=== PATIENT | male | born 1960 | race Caucasian/White ===

== ENCOUNTER 2023-01-06 15:01 | Outpatient (OUT) | payer BC, SELFPAY ==
--- NOTE | 2023-01-06 15:08 | XR_ITS ---
The [address] [address] Patient Name: PETER GONZALES MRN: [id number] date: 1960 Sex: M Assigned Patient Location: [facility] Current Patient Location: Accession/Order Number: [id number] Exam Date: 01/06/2023 15:15 Report Date: 01/07/2023 05:36 At the request of: JONATHAN MCKEON Procedure: XR cervical spine 5V EXAMINATION: XR thoracic spine 3V, XR cervical spine 5V, XR lumbar spine min 4V HISTORY: thoracic back pain , cervical pain, lumbar pain COMPARISON: No relevant comparison available. FINDINGS: BONES: Loss of normal cervical lordosis. No acute fracture. 3 mm retrolisthesis of C5 in relation to C4 and C6. L5 pars interarticularis fractures suspected. Moderate diffuse degenerative spondylosis and facet osteoarthropathy most significant at T12-L2 and C5-C6 DISC SPACES: Moderate multilevel disc space narrowing with endplate sclerosis PARASPINOUS: Negative. No paraspinous abnormality is seen. OTHER: Negative. IMPRESSION: Moderate diffuse degenerative changes most significant C5-C6 and T12-L2 Electronically authenticated by: PETER HERZOG Date: 01/07/2023 05:36
--- NOTE | 2023-01-06 15:08 | XR_ITS ---
The [address] [address] Patient Name: PETER GONZALES MRN: [id number] date: 1960 Sex: M Assigned Patient Location: [facility] Current Patient Location: Accession/Order Number: [id number] Exam Date: 01/06/2023 15:15 Report Date: 01/07/2023 05:36 At the request of: JONATHAN MCKEON Procedure: XR thoracic spine 3V EXAMINATION: XR thoracic spine 3V, XR cervical spine 5V, XR lumbar spine min 4V HISTORY: thoracic back pain , cervical pain, lumbar pain COMPARISON: No relevant comparison available. FINDINGS: BONES: Loss of normal cervical lordosis. No acute fracture. 3 mm retrolisthesis of C5 in relation to C4 and C6. L5 pars interarticularis fractures suspected. Moderate diffuse degenerative spondylosis and facet osteoarthropathy most significant at T12-L2 and C5-C6 DISC SPACES: Moderate multilevel disc space narrowing with endplate sclerosis PARASPINOUS: Negative. No paraspinous abnormality is seen. OTHER: Negative. IMPRESSION: Moderate diffuse degenerative changes most significant C5-C6 and T12-L2 Electronically authenticated by: PETER HERZOG Date: 01/07/2023 05:36
--- NOTE | 2023-01-06 15:08 | XR_ITS ---
The [address] [address] Patient Name: PETER GONZALES MRN: [id number] date: 1960 Sex: M Assigned Patient Location: [facility] Current Patient Location: Accession/Order Number: [id number] Exam Date: 01/06/2023 15:15 Report Date: 01/07/2023 05:36 At the request of: JONATHAN MCKEON Procedure: XR lumbar spine min 4V EXAMINATION: XR thoracic spine 3V, XR cervical spine 5V, XR lumbar spine min 4V HISTORY: thoracic back pain , cervical pain, lumbar pain COMPARISON: No relevant comparison available. FINDINGS: BONES: Loss of normal cervical lordosis. No acute fracture. 3 mm retrolisthesis of C5 in relation to C4 and C6. L5 pars interarticularis fractures suspected. Moderate diffuse degenerative spondylosis and facet osteoarthropathy most significant at T12-L2 and C5-C6 DISC SPACES: Moderate multilevel disc space narrowing with endplate sclerosis PARASPINOUS: Negative. No paraspinous abnormality is seen. OTHER: Negative. IMPRESSION: Moderate diffuse degenerative changes most significant C5-C6 and T12-L2 Electronically authenticated by: PETER HERZOG Date: 01/07/2023 05:36
== END 2023-01-06 15:02 | disposition home or self-care (01) ==
LOC: RAD 15:04
PROVIDERS: PCP Family Medicine; Visit Provider Family Medicine
DX: M54.2 Cervicalgia (principal); M54.6 Pain in thoracic spine; M54.50 Low back pain, unspecified; M47.812 Spondylosis without myelopathy or radiculopathy, cervical region; M47.815 Spondylosis without myelopathy or radiculopathy, thoracolumbar region
CPT/HCPCS: 72050; 72072; 72110

== ENCOUNTER 2023-01-28 04:15 | Emergency (ER) | payer BC, SELFPAY ==
[2023-01-28 04:24] VITALS: PULSE 60; RESP 16; TEMP 36.6; O2SAT 99; BMI 23.5
--- NOTE | 2023-01-28 04:56 | ED.BACK1 ---
HPI - Back Pain/Injury General Chief Complaint: Back Pain/Injury Stated Complaint: BACK PAIN Time Seen by Provider: 01/28/23 04:40 Source: patient Mode of arrival: walk-in History of Present Illness HPI Narrative: This 62-year-old male presents for evaluation of left lateral low back/buttock pain. He points to the sacroiliac region on the left as area of greatest pain. He states the pain has been present for a week. He denies any injury. He denies any radiation into his legs. He states that he was going to close a window in his car yesterday and his leg went out and he went down to his knee. He was artery having pain at that time. He denies any chest pain or shortness of breath. He does have a history of hypertension and he recently saw Dr. Angeles who scheduled him to have an ultrasound of his kidneys. He is not bleeding to the area of his kidneys as area of greatest pain at this time. He denies any bowel or bladder dysfunction. He has no constipation. He has not had any incontinence. He has not had any hematuria or dysuria. He denies any nausea or vomiting. He states the pain started on the right week or so ago and is now on the left side. There is no chest pain or shortness of breath. He denies any dizziness or diaphoresis. He has no focal weakness numbness or tingling. He has never been told that he has sciatica. Related Data Home Medications Medication Instructions Recorded Confirmed diclofenac sodium 75 mg 75 mg PO Q12H 01/28/23 01/28/23 tablet,delayed release metoprolol succinate 50 mg 50 mg PO Q12H 01/28/23 01/28/23 tablet,extended release 24 hr olmesartan 40 mg tablet 40 mg PO DAILY 01/28/23 01/28/23 tizanidine 4 mg tablet 4 mg PO DAILY 01/28/23 01/28/23 Allergies Allergy/AdvReac Type Severity Reaction Status Date / Time No Known Drug Allergies Allergy Verified 01/28/23 04:32 Review of Systems ROS Status of ROS 10 or more systems reviewed and unremarkable except as noted in history and below PFSH PFSH Social History Smoking status: Current every day smoker Exam Narrative Exam Narrative: Nurses note and vital signs reviewed and patient is not hypoxic. General: Adult male, he is sitting on a chair hunched over holding the left low back area with his hand, no respiratory distress, appears uncomfortable moving into the supine position on the bed Skin: Warm, dry, no pallor noted. There is no rash noted. Head: Normocephalic, atraumatic Eye: Normal conjunctiva, no drainage, EOMI. PERRL Ears, Nose, Mouth, and Throat: oral mucosa is moist. Cardiovascular: Regular Rate and Rhythm S1S2, pulses are brisk and equal bilaterally Respiratory: Patient is in no distress, no accessory muscle use, lungs are clear to auscultation, no wheezing, rales or rhonchi Back: There is point tenderness in the left sacro-iliac region, no buttock or piriformis muscle tenderness, no midline bony vertebral tenderness or step off, no CVAT, no skin rash noted GI: Normal bowel sounds, no tenderness to palpation, no masses appreciated. No rebound, guarding, or rigidity noted. no pulsatile masses Musculoskeletal; no calf swelling or tenderness, negative straight leg raising test bilaterally Neurological: A&O x4, normal speech, ambulatory with a steady gait, no saddle anesthesia Psychiatric: Cooperative Constitutional Vital Signs, click to edit/add: Last Vital Signs Temp 97.8 F 01/28/23 04:24 Pulse 60 01/28/23 04:24 Resp 16 01/28/23 04:24 Pulse Ox 99 01/28/23 04:24 O2 Del Method Room Air 01/28/23 04:24 Course Vital Signs Vital signs: Vital Signs Temperature 97.8 F 01/28/23 04:24 Pulse Rate 60 01/28/23 04:24 Respiratory Rate 16 01/28/23 04:24 Pulse Oximetry 99 01/28/23 04:24 Oxygen Delivery Method Room Air 01/28/23 04:24 Temperature 97.8 F 01/28/23 04:24 Pulse Rate 60 01/28/23 04:24 Respiratory Rate 16 01/28/23 04:24 Pulse Oximetry 99 01/28/23 04:24 Oxygen Delivery Method Room Air 01/28/23 04:24 MDM - Back Pain/Injury MDM Narrative Medical decision making narrative: This 62-year-old male presents for evaluation of sided low back pain. He has point tenderness at the left sacroiliac region of his back. He stated that the pain has been ongoing for greater than a week. It started on the right side and is now on the left. He has no neurologic symptoms associated with the back pain. He has no radiation into his legs. He does state that he did have a fall yesterday when his leg gave out when he was walking outside in his driveway. He had no injury at that time. An IV was placed and he was medicated with IV morphine, Zofran and Norflex. On reevaluation he appeared more comfortable. Noncontrast CT scan of the lumbar spine shows multilevel degenerative disc disease resulting in central canal and foraminal stenosis marked at L2-L3 with a complete loss of disc space with a large extrusion extending to near the inferior endplate of L3 within the left paracentral region which appears to cause marked central canal and left foraminal narrowing with moderate disc bulging at multiple levels causing moderate a greater foraminal narrowing. The results of the CT scan were discussed with the patient. I also did discuss this with the family physician who will see him in follow-up and arrange for him to have an MRI. He will be discharged home with a prescription for Percocet, Parafon forte, Colace and a Medrol Dosepak. He was encouraged to stay as active as possible and return to emergency department as needed for any neurologic symptoms including weakness, numbness, loss of bowel or bladder control or any concerns. He is anxious to leave at this time because his daughter is giving this morning. He will be dischargged home with a Percocet to take as needed for recurrent pain. He is otherwise neurologically stable, ambulatory and appears more comfortable. Discharge Plan Discharge Chief Complaint: Back Pain/Injury Clinical Impression: Low back pain, Herniated lumbar intervertebral disc Patient Disposition: Home, Self-Care Time of Disposition Decision: 06:39 Condition: Good Prescriptions / Home Meds: No Action diclofenac sodium 75 mg tablet,delayed release (DR/EC) 75 mg PO Q12H metoprolol succinate 50 mg tablet extended release 24 hr 50 mg PO Q12H olmesartan 40 mg tablet 40 mg PO DAILY tizanidine 4 mg tablet 4 mg PO DAILY Instructions: Lumbar Disc Herniation (ED), Lower Back Exercises (ED) Stand Alone Forms: Portal Instructions Referrals: Ab Angeles MD [Primary Care Provider] - 1 week
--- NOTE | 2023-01-28 05:14 | CT_ITS ---
The [address] [address] Patient Name: PETER GONZALES MRN: [id number] date: 1960 Sex: M Assigned Patient Location: ER Current Patient Location: Accession/Order Number: [id number] Exam Date: 01/28/2023 05:25 Report Date: 01/28/2023 05:59 At the request of: DEYVI MARKER Procedure: CT lumbar spine wo con EXAMINATION: CT lumbar spine wo con HISTORY: low back pain COMPARISON: No relevant comparison available. TECHNIQUE: Axial, Coronal, and Sagittal images were created without IV contrast. Dose reduction techniques were achieved by using automated exposure control and/or adjustment of mA and/or kV according to patient size and/or use of iterative reconstruction technique. FINDINGS: VERTEBRAL BODIES: L5 bilateral pars interarticularis defects; no anterior listhesis. Normal height and alignment of the vertebral bodies. Mild degenerative facet arthropathy L4-L5, L5-S1. FACET JOINTS: No disruption or abnormal widening. DISCS: L2-L3 complete loss of disc space with large extrusion extending to near the inferior endplate of L3 within the left paracentral region which appears to cause marked central canal and left foramen narrowing. Moderate disc bulging at multiple levels causing moderate or greater foramen narrowing. CENTRAL CANAL: No evidence of hemorrhage. PARASPINAL AREA: 2 nonobstructing 2 mm stones seen within left kidney. CT/CT lumbar spine wo con IMPRESSION: 1. Multilevel degenerative disc disease resulting in central canal and foraminal stenosis; marked at L2-L3. Follow-up with MRI of lumbar spine for greater diagnostic sensitivity. 2. Nonobstructing left nephrolithiasis. Electronically authenticated by: GAMALIEL BLANCO Date: 01/28/2023 05:59
[2023-01-28] MEDS: ORPHENADRINE 60 MG/ 2 ML VIAL IM (05:18)
[2023-01-28] MEDS: ONDANSETRON 4 MG RAPDIS TABLET SL (05:18)
[2023-01-28] MEDS: MORPHINE SULFATE 4 MG/ML VIAL IV (05:20)
[2023-01-28] MEDS: METHYLPREDNISOLONE SOD SUCC PF 125 MG/2 ML VIAL IVP (06:29)
== END 2023-01-28 06:49 | disposition home or self-care (01) ==
PROVIDERS: Emergency Provider Emergency Medicine; PCP Family Medicine
DX: M51.26 Other intervertebral disc displacement, lumbar region (principal); Z79.899 Other long term (current) drug therapy; F17.210 Nicotine dependence, cigarettes, uncomplicated
CPT/HCPCS: 72131; 81001; 96372; 96374; 96375; 99285; J2930

== ENCOUNTER 2023-02-05 14:47 | Emergency (ER) | payer BC, SELFPAY ==
[2023-02-05 15:09] VITALS: BP 149/84; PULSE 59; RESP 16; TEMP 36.4; O2SAT 100; BMI 24.2
--- NOTE | 2023-02-05 18:01 | ED_ITS ---
HPI - General Adult General Chief complaint: Extremity Problem, Nontraumatic Stated complaint: BACK PAIN Time Seen by Provider: 02/05/23 15:22 Source: patient and family Mode of arrival: walk-in Limitations: no limitations History of Present Illness HPI narrative: Patient is a 62-year-old male who is presenting with left-sided lumbar sacral radiculopathy. Patient has been very nasty with Dexter SHULTZ, and myself That he has waited in the cold waiting room for 3 hours when it is only been 2 hours. Very angry about his pain this been getting worse for the last several months to his lower back and left leg. Patient states that his pain radiates down his left leg is getting worse. He Is using very foul language in swearing, using f words to myself and Dexter SHULTZ multiple times. is in the room and not saying anything. Patient is angry and upset about his pain, pain getting worse, length of time waiting because he did not have aan acute emergency and we have high volume in the Emergency Room along with multiple ambulances and psychiatry patient's arriving. Patient's chief concern was that he wanted to arrived to the Emergency Room today, and have his back operated on. Patient wanted a MRI today, he wanted to see Dr. Ko, and he wanted surgery on his back tomorrow to help fix his pain and radiculopathy in his left leg. Patient has extremely false expectations in the Emergency Room visit today. There is no emergency today. Patient's pain is been getting worse for the last several weeks and patient is taking out his pain and anger on Emergency Room staff. Patient has been told this. I tried to explain the patient during HPI several times inappropriate use of the emergency room, he has no signs of saddle anesthesia or cauda equina, he has no acute loss of function, no indication to perform MRI or admit him to the hospital when he has a tests ordered in 3 days. Patient did not call his PCP Dr. Angeles at all today. Patient has been receiving intermittent pain medication. . All systems are negative except as noted/marked. All systems reviewed and otherwise negative. . Nurses note and vital signs reviewed and patient is not hypoxic. It took 15 minutes to perform HPI and explained to patient the appropriate use of the emergency room, indications for admission to the hospital, the lack of resources we have at [facility] because we are not a tertiary care center and did not have orthopedic surgeons her neurosurgeon is to operate on his back tomorrow. Patient became upset, starting getting dressed, did not want me to perform a thorough physical exam and wanted to leave the Emergency Room. Patient has functional decision-making capacity to leave Emergency Room at any time I told him. I told him we really do not tolerate the way he is talking to myself or staff andd being vulgar and nasty for unprovoked reasons by my nursing staff or myself. Patient's history the corner not sit anything during all these conversations. Patient finally allowed medical screening evaluation. Patient put his clothes back on. General: The patient appears Mild distress secondary to pain and being upset about his pain and his length of stay. Patient is resting uncomfortably on cart. Patient is not toxic, lethargic, or listless Skin: Warm, dry, no pallor noted. There is no rash noted. No petechiae, purpura. Head: Normocephalic, atraumatic Eye: Normal conjunctiva, no drainage, EOMI. PERRL Ears, Nose, Mouth, and Throat: oral mucosa is moist. Nares patent. Cardiovascular: Regular Rate and Rhythm, Respiratory: Patient is in no distress, Back: Patient states she has moderate to severe left lower back pain, I did not palpate his back because he was sitting in the chair and did not want me to. GI: soft, no tenderness Musculoskeletal: Patient has full range of motion of all of the extremities, no motor, sensory, or focal neurological deficits, He is moving his left leg with no acute changes but it is causing him pain with radiation of pain to his left buttock and left lateral thigh and left posterior thigh. No unilateral swelling to his left leg compared to the right leg. No palpation of pain to the posterior aspect of left leg is what patient told me, I did not touch him. Neurological: A&O x3, normal speech Psychiatric: Cooperative, Agitated, and verbally abusive to myself and nursing staff. Related Data Home Medications Medication Instructions Recorded Confirmed diclofenac sodium 75 mg 75 mg PO Q12H 01/28/23 01/28/23 tablet,delayed release metoprolol succinate 50 mg 50 mg PO Q12H 01/28/23 01/28/23 tablet,extended release 24 hr olmesartan 40 mg tablet 40 mg PO DAILY 01/28/23 01/28/23 tizanidine 4 mg tablet 4 mg PO DAILY 01/28/23 01/28/23 amlodipine 10 mg tablet 10 mg PO QDAY 02/05/23 02/05/23 chlorzoxazone 500 mg tablet 500 mg PO .q8 PRN muscle spasm 02/05/23 02/05/23 docusate sodium 100 mg capsule 100 mg PO DAILY 02/05/23 02/05/23 oxycodone-acetaminophen 5 mg-325 1 tab PO Q6H PRN pain 02/05/23 02/05/23 mg tablet Previous Rx's Medication Instructions Recorded oxycodone-acetaminophen 5 mg-325 1 tab PO Q4H PRN pain #10 tabs 02/05/23 mg tablet (Percocet) Allergies Allergy/AdvReac Type Severity Reaction Status Date / Time No Known Drug Allergies Allergy Verified 02/05/23 15:06 PFSH PFSH Social History Smoking status: Current every day smoker Exam Constitutional Vital Signs, click to edit/add: Last Vital Signs Temp 97.6 F 02/05/23 15:09 Pulse 59 L 02/05/23 15:09 Resp 16 02/05/23 15:09 BP 149/84 H 02/05/23 15:09 Pulse Ox 100 02/05/23 15:09 O2 Del Method Room Air 02/05/23 15:09 Course Vital Signs Vital signs: Vital Signs Temperature 97.6 F 02/05/23 15:09 Pulse Rate 59 L 02/05/23 15:09 Respiratory Rate 16 02/05/23 15:09 Blood Pressure 149/84 H 02/05/23 15:09 Pulse Oximetry 100 02/05/23 15:09 Oxygen Delivery Method Room Air 02/05/23 15:09 Temperature 97.6 F 02/05/23 15:09 Pulse Rate 59 L 02/05/23 15:09 Respiratory Rate 16 02/05/23 15:09 Blood Pressure 149/84 H 02/05/23 15:09 Pulse Oximetry 100 02/05/23 15:09 Oxygen Delivery Method Room Air 02/05/23 15:09 Medical Decision Making MDM Narrative Medical decision making narrative: I spoke to Dr. Angeles for 10 minutes on patient's mannerisms and his attitude and language in the Emergency Room. Patient allowed only for medical screening evaluation. I gave patient a copy of his CAT scan from January 28 and discussed the narrowing of the stenosis in his spine and foraminal stenosis. I try to educate him with the narrowing meds. I talked to Dr. Angeles so that he was aware of patient's Emergency Room visit, aware of the MRI is being done Wednesday, and need to follow-up with spinal surgeon or specialist. Patient was told that he can call Dr. Ko on Wednesday and try to have a follow-up with a minute. Patient was explained multiple times the procedures of the emergency room, need for admission, lack of surgical resources for spine at [facility]. Patient is to follow-up with Dr. Angeles on Wednesday. Dr. Angeles another recommendations except he will follow the results of his MRI, and he stated that I could give patient additional pain medication for the weekend. When patient was actually discharged by Dexter SHULTZ, he apologized for his behavior and language to fill the nurse and myself and realized that were trying to help him that we're busy today. was painful for help. Patient was given shot of Toradol, Norflex and [place] at discharge. Discharge Plan Discharge Chief Complaint: Extremity Problem, Nontraumatic Clinical Impression: Chronic lumbosacral pain, Chronic lumbar radiculopathy, Lumbar foraminal stenosis Patient Disposition: Home, Self-Care Condition: Fair Prescriptions / Home Meds: New oxycodone-acetaminophen [Percocet] 5-325 mg tablet 1 tab PO Q4H PRN (Reason: pain) Qty: 10 0RF No Action amlodipine 10 mg tablet 10 mg PO QDAY chlorzoxazone 500 mg tablet 500 mg PO .q8 PRN (Reason: muscle spasm) docusate sodium 100 mg capsule 100 mg PO DAILY oxycodone-acetaminophen 5-325 mg tablet 1 tab PO Q6H PRN (Reason: pain) diclofenac sodium 75 mg tablet,delayed release (DR/EC) 75 mg PO Q12H metoprolol succinate 50 mg tablet extended release 24 hr 50 mg PO Q12H olmesartan 40 mg tablet 40 mg PO DAILY tizanidine 4 mg tablet 4 mg PO DAILY Instructions: Chronic Pain (ED), Lumbar Radiculopathy (ED), Back Pain (ED), Lower Back Exercises (ED) Stand Alone Forms: Portal Instructions Referrals: Ab Angeles MD [Primary Care Provider] - 1 week Discharge Date/Time: 02/05/23 18:22
[2023-02-05] MEDS: HYDROCODONE/ACETAMINOPHEN 5-325 MG TABLET 1 TAB PO (18:11)
[2023-02-05] MEDS: KETOROLAC TROMETHAMINE 60 MG/2 ML VIAL IM (18:12)
[2023-02-05] MEDS: ORPHENADRINE 60 MG/ 2 ML VIAL IM (18:12)
== END 2023-02-05 18:22 | disposition home or self-care (01) ==
PROVIDERS: Emergency Provider Emergency Medicine; PCP Family Medicine
DX: M48.061 Spinal stenosis, lumbar region without neurogenic claudication (principal); M54.16 Radiculopathy, lumbar region; M54.50 Low back pain, unspecified; G89.29 Other chronic pain; Z79.899 Other long term (current) drug therapy; F17.210 Nicotine dependence, cigarettes, uncomplicated
CPT/HCPCS: 96372; 99284

== ENCOUNTER 2023-02-08 12:08 | Outpatient (OUT) | payer BC, SELFPAY ==
--- NOTE | 2023-02-08 12:16 | MR_ITS ---
The [address] [address] Patient Name: PETER GONZALES MRN: [id number] date: 1960 Sex: M Assigned Patient Location: MRI Current Patient Location: MRI Accession/Order Number: [id number] Exam Date: 02/08/2023 12:25 Report Date: 02/08/2023 15:58 At the request of: JONATHAN MCKEON Procedure: MR lumbar spine wo con EXAM: MR lumbar spine wo con HISTORY: Acute low back pain. COMPARISON: Lumbar spine CT from 01/28/2023. TECHNIQUE: Multiplanar and multisequence imaging of the lumbar spine was performed without contrast. FINDINGS: There is minimal grade 1 retrolisthesis of L2 on L3 measuring 2 mm. There is moderate to marked disc height loss at L2-L3 and moderate disc height loss at L1-L2 with anterior endplate spurring at these levels. No acute fracture is identified. No acute abnormality is identified involving visualized intrapelvic or intra-abdominal structures. The visualized aorta is normal in diameter. The upper sacrum is intact. There are chronic bilateral L5 pars defects also seen on the prior CT. Conus terminates at the T12-L1 level. L5-S1: There is a 3 mm broad-based disc protrusion and mild to moderate facet arthropathy with chronic bilateral L5 pars defects. There is mild to moderate bilateral foraminal narrowing without central stenosis. L4-L5: There are bilateral subarticular/foraminal disc protrusions measuring 4 mm in AP dimension with moderate facet arthropathy. There is moderate bilateral foraminal narrowing without central stenosis. L3-L4: A broad-based disc protrusion measures 5 mm in AP dimension and extends to the foraminal region bilaterally. Thecal sac measures 10 mm in AP dimension. There is moderate lateral recess narrowing bilaterally and moderate left greater than right foraminal narrowing. L2-L3: There is grade 1 retrolisthesis of L2 on L3 with a 5 mm broad-based disc protrusion and superimposed left lateral recess disc extrusion measuring 6 mm in AP dimension with inferior displacement of disc material measuring 8 mm. Changes result in mild to moderate central narrowing with the thecal sac measuring 8 mm in AP dimension. There is severe lateral recess narrowing on the left and moderate left and mild right foraminal narrowing. L1-L2: There is a broad-based disc protrusion and moderate facet arthropathy without central or foraminal stenosis. MR/MR lumbar spine wo con IMPRESSION: 1. There is grade 1 retrolisthesis of L2 on L3 with a broad-based disc protrusion and superimposed left lateral recess disc extrusion. There is mild to moderate central narrowing and severe lateral recess narrowing on the left with abutment of the left L3 nerve root. There is moderate left and mild right foraminal narrowing at L2-L3. 2. There is a broad-based disc protrusion and facet arthropathy at L3-L4 resulting in moderate foraminal narrowing more pronounced on the left. 3. There is no acute fracture. Chronic bilateral L5 pars defects are present. Electronically authenticated by: UMM RODRIGUEZ Date: 02/08/2023 15:58
--- NOTE | 2023-02-08 12:27 | XR_ITS ---
[address] [address] Patient Name: PETER GONZALES MRN: [id number] date: 1960 Sex: M Assigned Patient Location: MRI Current Patient Location: MRI Accession/Order Number: [id number] Exam Date: 02/08/2023 12:29 Report Date: 02/08/2023 12:38 At the request of: JONATHAN MCKEON Procedure: XR foreign body eye EXAMINATION: XR foreign body eye HISTORY: FOREIGN BODY COMPARISON: No relevant comparison available. FINDINGS: ORBITS: Negative for a metallic foreign body. OTHER: Negative. XR/XR foreign body eye IMPRESSION: 1. No metallic foreign body within the orbits. Electronically authenticated by: GAMALIEL BLANCO Date: 02/08/2023 12:38
== END 2023-02-08 12:09 | disposition home or self-care (01) ==
LOC: MRI 12:10
PROVIDERS: PCP Family Medicine; Visit Provider Family Medicine
DX: M53.86 Other specified dorsopathies, lumbar region (principal)
CPT/HCPCS: 70030; 72148

== ENCOUNTER 2023-03-22 13:29 | Outpatient (OUT) | payer BC, SELFPAY ==
--- NOTE | 2023-03-22 16:01 | PM.CN ---
Consult Note: HPI Data of Consult Patient: new to practice Consult date: 03/22/23 Requesting Physician: Maryann Aguilar MD Primary Care Provider: Ab Angeles MD Consult Narrative Reason for consult: left low back and leg pain Narrative: 62yom who presents for evaluation. worsening low back pain that radiates into left leg. ongoing for several months, but worsening. imaging reviewed, which is significant for disc bulging with abutment of left L3 nerve root. stenosis seen at l3-4, l4-5, l5-s1. engaged in >6 weeks of provider directed home exercises, with minimal relief. utilizes t#3, with some benefit. denies adverse med side effects. cc:: CC: Maryann Aguilar MD Review of Systems ROS Status of ROS 10 or more systems reviewed and unremarkable except as noted in history and below PFSH PFSH Social History Smoking status: Current every day smoker Meds Home Medications and Allergies Home Medications Medication Instructions Recorded Confirmed Type diclofenac sodium 75 mg 75 mg PO Q12H 01/28/23 01/28/23 History tablet,delayed release metoprolol succinate 50 mg 50 mg PO Q12H 01/28/23 01/28/23 History tablet,extended release 24 hr olmesartan 40 mg tablet 40 mg PO DAILY 01/28/23 01/28/23 History tizanidine 4 mg tablet 4 mg PO DAILY 01/28/23 01/28/23 History amlodipine 10 mg tablet 10 mg PO QDAY 02/05/23 02/05/23 History chlorzoxazone 500 mg tablet 500 mg PO .q8 PRN muscle spasm 02/05/23 02/05/23 History docusate sodium 100 mg capsule 100 mg PO DAILY 02/05/23 02/05/23 History oxycodone-acetaminophen 5 mg-325 1 tab PO Q6H PRN pain 02/05/23 02/05/23 History mg tablet oxycodone-acetaminophen 5 mg-325 1 tab PO Q4H PRN pain #10 tabs 02/05/23 Rx mg tablet (Percocet) Allergies Allergy/AdvReac Type Severity Reaction Status Date / Time No Known Drug Allergies Allergy Verified 02/05/23 15:06 Exam Narrative Exam Narrative: Psych-alert and oriented x 3. Attentive and appropriate, constitutionally normal, displays normal mood and affect per situation. There are no obvious deficits in memory, reasoning, or intellect.? Skin-no obvious rashes, bruising, erythema noted to the patient's area of pain.? Extremities- extremities are warm with minimal edema and palpable pulses. Lumbar-tenderness to palpation noted in the lumbar spine and paraspinal musculature. Pain is elicited with flexion, extension, and lateral rotation of the lumbar spine. Range of motion is diminished with these motions. Facet loading maneuvers are positive..? Strength-noted to be unremarkable with the exception of decreased strength rated at 4 out of 5 in left quadriceps femoris, anterior tibialis. Sensory-no notable sensory deficits in the bilateral lower extremities to touch or pinprick in all dermatomal distributions with the exception to decreased sensation to the left L3, 4, 5 dermatomal distribution Sacroiliac joint - tenderness to palpation over left PSIS. Cresencio's maneuver positive on left. Thigh thrust positive on left. Coordination remains intact.? Gait remains non-antalgic Assessment and Plan Assessment and Plan (1) Lumbar foraminal stenosis: (2) Herniated lumbar intervertebral disc: Plan 62yom who presents for evaluation. failed conservative measures, as noted. imaging reviewed. given symptoms and imaging, prudent to attempt left L3-4, L4-5 transforaminal epidural steroid injection to provide analgesia. may even benefit from block of the nerve innervating the left sacroiliac joint. he is in agreement. medications reviewed, will have him trial gabapentin 300mg tid. follow up after procedure.
== END 2023-03-22 13:30 | disposition home or self-care (01) ==
LOC: PM 13:29
PROVIDERS: PCP Family Medicine; Visit Provider Anesthesiology
DX: M51.26 Other intervertebral disc displacement, lumbar region (principal); M48.061 Spinal stenosis, lumbar region without neurogenic claudication
CPT/HCPCS: G0463

== ENCOUNTER 2023-03-29 08:44 | Day surgery (SDC) | payer BC, SELFPAY ==
[2023-03-29 09:29] VITALS: BP 173/93; PULSE 59; RESP 14; TEMP 36.3; O2SAT 100
[2023-03-29] MEDS: IOHEXOL 240 MG/ML - 10 ML VIAL INJ (10:27)
[2023-03-29] MEDS: BUPIVACAINE HCL 0.25% PF 25 MG/10 ML VIAL INJ (10:27)
[2023-03-29] MEDS: LIDOCAINE HCL 2% PF 100 MG/5 ML VIAL INJ (10:28)
[2023-03-29] MEDS: TRIAMCINOLONE ACETONIDE 40 MG/ML VIAL INJ (10:28)
--- NOTE | 2023-03-29 10:29 | P.ON_ITS ---
Date of procedure: 03/29/23 Pre-op diagnosis: Lumbar stenosis with neurogenic claudication Post-op diagnosis: same as pre-op Procedure: Procedure: Left L3-4, L4-5 transforaminal epidural steroid injection Medications: Bupivacaine 0.25% 2cc, kenalog 80mg The patient was seen and examined in the preoperative holding area.? Informed consent was obtained and placed on the chart.? Patient was brought to the medical procedure unit and placed in the prone position where a timeout was completed verifying the correct patient, procedure site, position, and planned special equipment using sterile aseptic technique.? Under direct fluoroscopic visualization a 25-gauge Quincke tipped spinal needle was advanced to the designated neural foramen where contrast dye was injected to show adequate spread.? The needle was inserted at level left L3-4. There was no evidence of vascular or adverse uptake.? Epidural spread was appreciated.? The above- mentioned injectate was then placed in a 1.5 mL aliquot preceded by negative aspiration.? The needle was removed. The needle was inserted and the procedure repeated at level left L4-5.? The surgery site was covered.? Patient was taken to the postprocedural recovery area and monitored for an appropriate length of time before found suitable for discharge in the accompaniment of a responsible adult. Anesthesia: Local Surgeon: Maryann Aguilar Pathology: none sent Condition: stable Disposition: no change
[2023-03-29 14:22] VITALS: BP 171/87; BP 176/85; PULSE 55; PULSE 58; RESP 18; O2SAT 97; O2SAT 98
== END 2023-03-29 10:33 | disposition home or self-care (01) ==
PROVIDERS: PCP Family Medicine; Visit Provider Anesthesiology
DX: M48.062 Spinal stenosis, lumbar region with neurogenic claudication (principal)
CPT/HCPCS: 64483; 64484; Q9966

== ENCOUNTER 2023-04-12 10:30 | Day surgery (SDC) | payer BC, SELFPAY ==
[2023-04-12 11:15] VITALS: BP 163/87; PULSE 61; RESP 14; TEMP 36.6; O2SAT 100
[2023-04-12 12:02] VITALS: BP 159/90; PULSE 57; RESP 16; O2SAT 98
[2023-04-12] MEDS: BUPIVACAINE HCL 0.25% PF 25 MG/10 ML VIAL 2 ML INJ (12:08)
[2023-04-12] MEDS: IOHEXOL 240 MG/ML - 10 ML VIAL INJ (12:08)
[2023-04-12] MEDS: LIDOCAINE HCL 2% PF 100 MG/5 ML VIAL 3 ML INJ (12:08)
[2023-04-12] MEDS: TRIAMCINOLONE ACETONIDE 40 MG/ML VIAL 80 MG INJ (12:08)
--- NOTE | 2023-04-12 12:10 | W.PM.PROCNOT ---
Date of procedure: 04/12/23 Pre-op diagnosis: Sacroiliitis, left Post-op diagnosis: same as pre-op Procedure: Procedure: Left block of the nerve innervating the sacroiliac joint Medications: Bupivacaine 0.25% 3cc, kenalog 40mg After informed consent was obtained, the patient was brought to the medical procedure unit and placed in the prone position, when a timeout was completed verifying correct patient, procedure, site, positioning, implant, and/or special equipment.? The skin overlying the area was prepped and draped in standard sterile fashion using alcohol.? A 25-gauge needle was inserted towards the left nerve innervating the sacroiliac joint under direct fluoroscopic imaging.? Needle tip was advanced until the nerve was encountered.? We instilled a total of 3 mL of solution.? Postoperatively needles were removed.? The patient tolerated the procedure well without complication.? The patient reported reduction in pain symptoms postoperatively. Anesthesia: Local Surgeon: Maryann Aguilar Pathology: none sent Condition: stable Disposition: no change
[2023-04-12 13:26] VITALS: BP 165/92; PULSE 54; RESP 17; O2SAT 94
== END 2023-04-12 12:11 | disposition home or self-care (01) ==
PROVIDERS: PCP Family Medicine; Visit Provider Anesthesiology
DX: M46.1 Sacroiliitis, not elsewhere classified (principal)
CPT/HCPCS: 64451; Q9966

== ENCOUNTER 2023-04-28 09:35 | Outpatient (OUT) | payer BC, SELFPAY ==
--- NOTE | 2023-04-28 09:54 | PM.CN ---
Consult Note: HPI Data of Consult Patient: known to practice within the last 3 years Requesting Physician: Ute Eric NP Primary Care Provider: Ab Angeles MD Consult Narrative Reason for consult: f/u Narrative: Terry Myers a pleasant 62 year old male presents for evaluation and management of chronic back, SIJ, knee, and shoulder pain. Patient recently underwent left L3-4 L4-5 TFESI and left SIJ NB with 60% improvement in symptoms. Today rating pain 4/10 in left shoulder and knee and would like to discuss this. cc:: CC: Ute Eric NP Review of Systems ROS Status of ROS 10 or more systems reviewed and unremarkable except as noted in history and below Musculoskeletal Reports: back pain, joint pain and muscle weakness PFSH PFSH Medical History (Updated 04/28/23 @ 10:35 by Ute Eric NP) H/O renal calculi ?Z87.442 - Personal history of urinary calculi (ICD-10) Hypertension ?I10 - Essential (primary) hypertension (ICD-10) Low back pain ?M54.50 - Low back pain, unspecified (ICD-10) Smoker ?F17.200 - Nicotine dependence, unspecified, uncomplicated (ICD-10) Upper back pain ?M54.9 - Dorsalgia, unspecified (ICD-10) Surgical History History of appendectomy ?Z90.49 - Acquired absence of other specified parts of digestive tract (ICD-10) Social History Smoking status: Current every day smoker Meds Home Medications and Allergies Home Medications Medication Instructions Recorded Confirmed Type diclofenac sodium 75 mg 75 mg PO Q12H 01/28/23 04/12/23 History tablet,delayed release metoprolol succinate 50 mg 50 mg PO Q12H 01/28/23 04/12/23 History tablet,extended release 24 hr olmesartan 40 mg tablet 40 mg PO DAILY 01/28/23 04/12/23 History amlodipine 10 mg tablet 10 mg PO QDAY 02/05/23 04/12/23 History docusate sodium 100 mg capsule 100 mg PO DAILY 02/05/23 04/12/23 History acetaminophen 300 mg-codeine 30 mg 1 tab PO Q6H 03/23/23 04/12/23 History tablet clonidine HCl 0.1 mg tablet 0.1 mg PO TID 03/23/23 04/12/23 History pregabalin 75 mg capsule (Lyrica) 75 mg PO BID 03/23/23 04/12/23 History Allergies Allergy/AdvReac Type Severity Reaction Status Date / Time No Known Drug Allergies Allergy Verified 03/29/23 09:25 Exam Constitutional Documenting provider has reviewed patient's vital signs: yes Common normals: no apparent distress, oriented x3, healthy appearing, alert and well nourished General appearance: cooperative HENMT Common normals: normocephalic, hearing grossly normal bilaterally and moist oral mucous membranes Head and scalp: normocephalic Eye Common normals: PERRL Pupil: PERRL Neck & C-Spine Common normals: full ROM General: normal visual inspection Cervical spine: cervical ROM normal Chest Common normals: inspection of chest normal Respiratory Common normals: normal respiratory effort, no retractions and no use of accessory muscles Back & Pelvis Lumbar spine/lower back: ROM limited, pain with ROM and straight leg raise negative bilaterally Sacroiliac joints: SI joint(s) abnormal (pain over left PSIS, negative gaenslens thigh thrust BROOKE) Extremity Common normals: normal to inspection and full ROM Other: left shoulder pain with ROM, tender over AC joint, no edema or redness left knee mildly enlarged diameter, negative medial and lateral stress testing. Pain with weight bearing and ambulation. Neuro Common normals: oriented x3, CN's II-XII intact bilaterally, moves all extremities, no focal motor deficits, no sensory deficits noted and deep tendon reflexes 2+ bilaterally Sensorium/orientation: alert Gait (neuro): antalgic Motor exam: no movement abnormalities noted and strength abnormal (BLE 3/5) Psych Common normals: mental status grossly normal, thought process normal, cooperative, affect normal, speech normal and activity/motor behavior normal Speech: normal speech Thought process: normal thought process Results Additional Findings Additional findings: I have checked an [facility] report on this patient today and there are no aberrancies noted in the prescribing history.?? A drug screen was completed and reviewed within the last year, and if there has not been a drug screen completed we ordered one today to monitor higher risk, state monitored pain medication use. As part of providing excellent, safe, comprehensive care, the following was completed at our patient's visit: 1. A medication reconciliation and review to ensure accurate knowledge of current/active medications, including asking our patients to inform us about any [id number] medications or herbal remedies/nutritional supplements/alternative remedies. 2. A review to specifically ensure our patients have had annual screening for: elevated body mass index (BMI), tobacco use, screening for depression, and screening for unhealthy alcohol use. When screening is concerning, patients are provided with education and the specific recommendation to discuss the concerning health issue and treatment options with their primary care provider. Assessment and Plan Assessment and Plan (1) Left shoulder pain: (2) Left knee pain: (3) Low back pain: (4) Herniated lumbar intervertebral disc: (5) Chronic lumbar radiculopathy: (6) Lumbar foraminal stenosis: Plan -obtain imaging from [facility] -xray of left shoulder for chronic pain -xray of left knee for chronic pain -PT for low back pain with radiculopathy and NC -continue follow up with [facility] as previously scheduled and discussed. They are managing his medications -f/u 2-3 months, consider joint injections of left shoulder and knee if imaging supports the need
== END 2023-04-28 09:36 | disposition home or self-care (01) ==
LOC: PM 09:35
PROVIDERS: PCP Family Medicine; Visit Provider Nurse Practitioner
DX: M25.512 Pain in left shoulder (principal); M25.562 Pain in left knee; M54.50 Low back pain, unspecified; M54.16 Radiculopathy, lumbar region; M48.061 Spinal stenosis, lumbar region without neurogenic claudication
CPT/HCPCS: G0463

== ENCOUNTER 2023-04-29 07:42 | Outpatient (RCR) | payer BC, SELFPAY | END 2023-04-30 16:32 | disposition home or self-care (01) | LOC: PT 07:42 | PROVIDERS: PCP Family Medicine; Visit Provider Nurse Practitioner | DX: M54.50 Low back pain, unspecified (principal); M54.16 Radiculopathy, lumbar region | CPT/HCPCS: 97161 ==

== ENCOUNTER 2023-04-29 08:54 | Outpatient (OUT) | payer BC, SELFPAY ==
--- NOTE | 2023-04-29 08:57 | XR_ITS ---
The [address] [address] Patient Name: PETER GONZALES MRN: [id number] date: 1960 Sex: M Assigned Patient Location: [facility] Current Patient Location: Accession/Order Number: [id number] Exam Date: 04/29/2023 09:05 Report Date: 04/30/2023 07:17 At the request of: XAVIER RAMIREZ Procedure: XR shoulder LT min 2V PROCEDURE: XR shoulder LT min 2V HISTORY: Left Shoulder Pain ; no known injury COMPARISON: None. FINDINGS: BONES:Narrowing of the acromioclavicular joint with large periarticular osteophytes. Small separate ossification along inferior margin of glenoid. Unremarkable humeral head. SOFT TISSUES:No visible soft tissue swelling. EFFUSION:None visible. OTHER: Negative. XR/XR shoulder LT min 2V IMPRESSION: 1. Moderate marked degenerative change of the acromioclavicular joint which would predispose to rotator cuff injury. 2. Suspect remote fracture fragment, or possibly a degenerative osteophyte, along inferior margin of glenoid. 3. Consider MRI of left shoulder for further evaluation. Electronically authenticated by: GAMALIEL BLANCO Date: 04/30/2023 07:17
--- NOTE | 2023-04-29 08:57 | XR_ITS ---
The [address] [address] Patient Name: PETER GONZALES MRN: [id number] date: 1960 Sex: M Assigned Patient Location: RAD Current Patient Location: [facility] Accession/Order Number: [id number] Exam Date: 04/29/2023 09:05 Report Date: 04/30/2023 07:19 At the request of: XAVIER RAMIREZ Procedure: XR knee LT 4V PROCEDURE: XR knee LT 4V HISTORY: Left Knee Pain , no known injury COMPARISON: None. FINDINGS: BONES:No fracture, acute abnormality, or significant arthropathy. SOFT TISSUES:No visible soft tissue swelling. EFFUSION:None visible. OTHER: Negative. XR/XR knee LT 4V IMPRESSION: 1. No acute bone abnormality or significant degenerative joint disease. Electronically authenticated by: GAMALIEL BLANCO Date: 04/30/2023 07:19
== END 2023-04-29 08:55 | disposition home or self-care (01) ==
LOC: RAD 08:54
PROVIDERS: PCP Family Medicine; Visit Provider Nurse Practitioner
DX: M25.562 Pain in left knee (principal); M25.512 Pain in left shoulder
CPT/HCPCS: 73030; 73564

== ENCOUNTER 2023-08-17 07:51 | Outpatient (OUT) | payer BC, SELFPAY ==
--- OUTSIDE RECORDS SUMMARY | 2023-08-17 07:55 | XMS_ITS | CCD ---
Author Name Unknown Address [address] [place] [address] Organization [facility] Care Team Providers Care [employer] Name Role Phone LINDA, DR CASTILLO Consulting Unavailable LINDA, DR CASTILLO Attending Unavailable LINDA, DR CASTILLO Admitting Unavailable LINDA, DR CASTILLO Primary Care Unavailable LINDA, DR CASTILLO Primary Care Unavailable LINDA, DR CASTILLO Consulting Unavailable LINDA, DR CASTILLO Attending Unavailable LINDA, DR CASTILLO Admitting Unavailable KALYANI SCALESISON Referring Unavailable Jeff CADENA, Maryann Webb Attending Unavailable Jeff CADENA, Maryann Webb Attending Unavailable Jeff CADENA, Maryann Webb Attending Unavailable Allergies Allergy Classification Reported Allergen(s) Allergy Type Date of Onset Reaction(s) Facility (1 source) ALLERGIES NOT ON FILE; Translations: [ALLERGIES NOT ON FILE] Propensity to adverse reactions (disorder) [facility] Repository Problems Problem Classification Problem Date Documented Da te Episodic/Chronic Other liver diseases (4 sources) Abnormal levels of other serum enzymes; Translations: [ABNORMAL LEVELS OTHER SERUM ENZYMES] Onset: 01-06-2022 Episodic Other screening for suspected conditions (not mental disorders or infectious disease) (1 source) Encounter for screening for malignant neoplasm of prostate; Translations: [ENC SCREEN MALIG NEOPLASM PROSTATE] Onset: 01-02-2022 Episodic Spondylosis; intervertebral disc disorders; other back problems (2 sources) Spinal stenosis, lumbar region without neurogenic claudication; Translations: [Spinal stenosis, lumbar region without neurogenic claudication] Onset: 02-04-2023 Episodic Results Test Name Value Interpretation Reference Range Facility 36on 02-26-2023 36 LVM with pt to call to schedule consult if they would like. Requested Hip XR done while at ER to be pushed. Normal [facility] 02-16-2023 36 Pt is currently in [place] ER and Dr. Glover was notified by ER staff. Will attempt to reach pt to see if they are wanting to schedule at this time. Will reach out to [place] to have new images, if any, pushed. [facility] 3602-08-2023 36 Called pt to schedule consult. Spoke with who said that they were told to say that they are going to wait to make an appt for now. [facility] 3602-04-2023 36 LVM for pt to call clinic to schedule consult for Lumbar Stenosis with Elisabeth Scales CNP. Pt was instructed to call clinic number [phone] and can schedule with anyone who answers. Imaging requested from [place]. [facility] Telephoneon 02-04-2023 Telephone [phone] Terry Myers 1960 M Date Provider Department Center 02/04/2023 HELLEN JEFFERSON [facility] SURG Second Fl No family history on file Reason for Visit and Comments: Referral [825] [facility] HEPATITIS PANEL, ACUTEon HBsAg Screen Negative Normal Negative [facility] Comment on above: Performed By: #### H EPACUT #### [facility] [address] [address] [address] Rizwana Diaz HCV AB >11.0 Critically high 0.0-0.9 [facility] Comment on above: Result Comment: . Performed By: #### H EPACUT #### [facility] [address] [address] [address] Rizwana Diaz HCV log10 5.140 log10 IU/mL Normal [facility] Comment on above: Performed By: #### H EPACUT #### [facility] [address] [address] [address] Rizwana Diaz Hep A Ab, IgM Negative Normal Negative [facility] Comment on above: Performed By: #### H EPACUT #### [facility] [address] [address] [address] Rizwana Diaz Hep B Core Ab, IgM Negative Normal Negative The [facility] Comment on above: Performed By: #### H EPACUT #### [facility] [address] [address] [address] Rizwana Diaz Hep C Quantitation [id number] IU/mL Normal [facility] Comment on above: Performed By: #### H EPACUT #### [facility] [address] [address] [address] Rizwana Diaz Interpretation Comment Normal [facility] Comment on above: Result Comment: Posi tive HCV antibody screen with the presence of HCV RNA is consistent with active infection. Performed By: #### H EPACUT #### [facility] [address] [address] [address] Rizwana Diaz Test Information: Comment Normal [facility] Comment on above: Result Comment: The quantitative range of this assay is 15 IU/mL to 100 million IU/mL. Performed By: #### H EPACUT #### [facility] [address] [address] [address] Rizwana Diaz LIVER PROFILEon 01-06-2022 Albumin [Mass/Vol] 3.6 g/dL Normal 3.4-5.0 [facility] Comment on above: Performed By: #### L IVER #### [facility] [address] [address] [address] Rizwana Diaz Albumin/Globulin [Mass ratio] 0.9 {ratio} Normal [facility] Comment on above: Performed By: #### L IVER #### [facility] [address] [address] [address] Rizwana Diaz ALP [Catalytic activity/Vol] 75 U/L Normal 46-116 [facility] Comment on above: Performed By: #### L IVER #### [facility] [address] [place] [address] Dr. Rizwana Diaz ALT [Catalytic activity/Vol] 120 U/L Critically high 16-63 [facility] Comment on above: Performed By: #### L IVER #### [facility] [address] [address] [address] Rizwana Diaz AST [Catalytic activity/Vol] 56 U/L Critically high 15-37 [facility] Comment on above: Performed By: #### L IVER #### [facility] [address] [place] [address] Dr. Rizwana Diaz BILI, CONJUGATED 0.2 mg/dL Normal 0.0-0.2 [facility] Comment on above: Performed By: #### L IVER #### [facility] [address] [place] [address] Dr. Rizwana Diaz Bilirubin [Mass/Vol] 0.6 mg/dL Normal 0.2-1.0 [facility] Comment on above: Performed By: #### L IVER #### [facility] [address] [place] [address] Dr. Rizwana Diaz Globulin (S) [Mass/Vol] 3.8 g/dL Normal [facility] Comment on above: Performed By: #### L IVER #### [facility] [address] [place] [address] Dr. Rizwana Diaz Protein [Mass/Vol] 7.4 g/dL Normal 6.4-8.2 [facility] Comment on above: Performed By: #### L IVER #### [facility] [address] [place] [address] Dr. Rizwana Diaz CBC AUTO DIFFon 12-30-2021 BASO # 0.0 103/ul Normal 0.0-0.1 [facility] Comment on above: Performed By: #### C BC #### [facility] [address] [place] [address] Dr. Rizwana Diaz Basophils/100 WBC (Bld) 0.4 % Normal 0.2-2.0 [facility] Comment on above: Performed By: #### C BC #### [facility] [address] [place] [address] Dr. Rizwana Diaz EO # 0.3 103/ul Normal 0.0-0.7 [facility] Comment on above: Performed By: #### C BC #### [facility] [address] [place] [address] Dr. Rizwana Diaz Eosinophils/100 WBC (Bld) 4.0 % Normal 0.9-7.0 [facility] Comment on above: Performed By: #### C BC #### [facility] [address] [place] [address] Dr. Rizwana Diaz Erythrocyte distribution width (RBC) [Ratio] 12.4 % Normal 11.0-15.0 [facility] Comment on above: Performed By: #### C BC #### [facility] [address] [place] [address] Dr. Rizwana Diaz Hematocrit (Bld) [Volume fraction] 44.5 % Normal 42.0-54.0 [facility] Comment on above: Performed By: #### C BC #### [facility] [address] [place] [address] Dr. Rizwana Diaz Hemoglobin (Bld) [Mass/Vol] 15.0 g/dL Normal 14.0-18.0 [facility] Comment on above: Performed By: #### C BC #### [facility] [address] [place] [address] Dr. Rizwana Diaz IG # 0.02 10e3/ul Normal 0.00-0.03 [facility] Comment on above: Performed By: #### C BC #### [facility] [address] [place] [address] Dr. Rizwana Diaz IG % 0.3 % Normal 0.0-0.5 [facility] Comment on above: Performed By: #### C BC #### [facility] [address] [place] [address] Dr. Rizwana Diaz LYMPH # 1.4 103/ul Normal 1.2-3.8 [facility] Comment on above: Performed By: #### C BC #### [facility] [address] [place] [address] Dr. Rizwana Diaz Lymphocytes/100 WBC (Bld) 18.3 % Critically low 20.5-60.0 [facility] Comment on above: Performed By: #### C BC #### [facility] [address] [place] [address] Dr. Rizwana Diaz MANUAL DIFF REQ NO Normal [facility] Comment on above: Performed By: #### C BC #### [facility] [address] [address] [address] Rizwana Diaz MCH (RBC) [Entitic mass] 31.3 pg Normal 25.9-34.0 [facility] Comment on above: Performed By: #### C BC #### [facility] [address] [place] [address] Dr. Rizwana Diaz MCHC (RBC) [Mass/Vol] 33.7 g/dL Normal 29.9-35.2 [facility] Comment on above: Performed By: #### C BC #### [facility] [address] [place] [address] Dr. Rizwana Diaz MCV (RBC) [Entitic vol] 92.9 fL Normal 80.0-94.0 [facility] Comment on above: Performed By: #### C BC #### [facility] [address] [place] [address] Dr. Rizwana Diaz MONO # 0.9 103/ul Critically high 0.3-0.8 [facility] Comment on above: Performed By: #### C BC #### [facility] [address] [place] [address] Dr. Rizwana Diaz Monocytes/100 WBC (Bld) 12.7 % Critically high 1.7-12.0 [facility] Comment on above: Performed By: #### C BC #### [facility] [address] [place] [address] Dr. Rizwana Diaz NEUT # 4.8 103/ul Normal 1.4-6.5 [facility] Comment on above: Performed By: #### C BC #### [facility] [address] [place] [address] Dr. Rizwana Diaz Neutrophils/100 WBC (Bld) 64.3 % Normal 43.0-75.0 [facility] Comment on above: Performed By: #### C BC #### [facility] [address] [place] [address] Dr. Rizwana Diaz Platelet mean volume (Bld) [Entitic vol] 11.3 fL Normal 9.5-13.5 [facility] Comment on above: Performed By: #### C BC #### [facility] [address] [place] [address] Dr. Rizwana Diaz PLT 175 103/ul Normal 150-450 [facility] Comment on above: Performed By: #### C BC #### [facility] [address] [place] [address] Dr. Rizwana Diaz RBC 4.79 106/ul Normal 4.70-6.10 [facility] Comment on above: Performed By: #### C BC #### [facility] [address] [place] [address] Dr. Rizwana Diaz WBC 7.4 103/ul Normal 4.0-11.0 [facility] Comment on above: Performed By: #### C BC #### [facility] [address] [place] [address] Dr. Rizwana Diaz FREE THYROXINE INDEX T7on FTI 1.83 Normal 1.30-4.50 [facility] Comment on above: Performed By: #### C MP, LIPID, TSH, T7, URIC #### [facility] [address] [place] [address] Dr. Rizwana Diaz T3U 31.0 % Critically low 33.0-40.0 [facility] Comment on above: Performed By: #### C MP, LIPID, TSH, T7, URIC #### [facility] [address] [place] [address] Dr. Rizwana Diaz T4 [Mass/Vol] 5.90 ug/dL Normal 4.50-12.10 [facility] Comment on above: Performed By: #### C MP, LIPID, TSH, T7, URIC #### [facility] [address] [place] [address] Dr. Rizwana Diaz GLYCOHEMOGLOBIN A1Con 2021 ADA RECOMMENDATION SEE BELOW Normal [facility] Comment on above: Result Comment: ADA RECOMMENDED LIMIT 4.0 - 6.0 ADA THERAPEUTIC TARGET < 7.0 ACTION SUGGESTED > 7.0 Performed By: #### A 1C #### [facility] [address] [address] [address] Rizwana Diza Glucose [Mass/Vol] 111 mg/dL Normal [facility] Comment on above: Performed By: #### A 1C #### [facility] [address] [place] [address] Dr. Rizwana Diaz HbA1c (Bld) [Mass fraction] 5.5 % Normal 4.5-6.2 [facility] Comment on above: Performed By: #### A 1C #### [facility] [address] [place] [address] Dr. Rizwana Diaz LIPID PROFILEon 12-30-2021 CHOL-HDL RATIO NORM SEE BELOW Normal [facility] Comment on above: Result Comment: 3.3 - 4.4 LOW RISK 4.4 - 7.1 AVERAGE RISK 7.1 - 11.0 MODERATE RISK >11.0 HIGH RISK Performed By: #### C MP, LIPID, TSH, T7, URIC #### [facility] [address] [place] [address] Dr. Rizwana Diaz Cholesterol [Mass/Vol] 144 mg/dL Normal <=200 [facility] Comment on above: Performed By: #### C MP, LIPID, TSH, T7, URIC #### [facility] [address] [place] [address] Dr. Rizwana Diaz Cholesterol in HDL [Mass/Vol] 51 mg/dL Normal 40-60 [facility] Comment on above: Performed By: #### C MP, LIPID, TSH, T7, URIC #### [facility] [address] [address] [address] Rizwana Diaz Cholesterol in LDL [Mass/Vol] 82.2 mg/dL Normal [facility] Comment on above: Performed By: #### C MP, LIPID, TSH, T7, URIC #### [facility] [address] [place], [place] [id number] Dr. Rizwana Diaz Cholesterol.total/Cho lesterol in HDL [Mass ratio] 2.8 {ratio} Normal [facility] Comment on above: Performed By: #### C MP, LIPID, TSH, T7, URIC #### [facility] [address] [address] [address] Rizwana Diaz HDL NORMAL > or = 60 mg/dl - LOW CARDIOVASCULAR RISK <40 mg/dl - HIGH CARDIOVASCULAR RISK Normal [facility] Comment on above: Performed By: #### C MP, LIPID, TSH, T7, URIC #### [facility] [address] [address] [address] Rizwana Diaz LDL CALC NORMAL SEE BELOW Normal [facility] Comment on above: Result Comment: <100 mg/dl OPTIMAL 100 - 129 mg/dl NEAR OR ABOVE OPTIMAL 130 - 159 mg/dl BORDERLINE HIGH 160 - 189 mg/dl HIGH >190 mg/dl VERY HIGH Performed By: #### C MP, LIPID, TSH, T7, URIC #### [facility] [address] [address] [address] Rizwana Diaz Triglyceride [Mass/Vol] 54 mg/dL Normal <=150 [facility] Comment on above: Performed By: #### C MP, LIPID, TSH, T7, URIC #### [facility] [address] [address] [address] Rizwana Diaz VLDL CALC 10.8 mg/dL Normal [facility] Comment on above: Performed By: #### C MP, LIPID, TSH, T7, URIC #### [facility] [address] [address] [address] Rizwana Diaz PROF 14(COMP METB)on 022 Albumin [Mass/Vol] 3.9 g/dL Normal 3.4-5.0 [facility] Comment on above: Performed By: #### C MP, LIPID, TSH, T7, URIC #### [facility] [address] [address] [address] Rizwana Diaz Albumin/Globulin [Mass ratio] 1.0 {ratio} Normal [facility] Comment on above: Performed By: #### C MP, LIPID, TSH, T7, URIC #### [facility] [address] [place] [address] Dr. Rizwana Diaz ALP [Catalytic activity/Vol] 89 U/L Normal 46-116 [facility] Comment on above: Performed By: #### C MP, LIPID, TSH, T7, URIC #### [facility] [address] [address] [address] Rizwana Diaz ALT [Catalytic activity/Vol] 174 U/L Critically high 16-63 [facility] Comment on above: Performed By: #### C MP, LIPID, TSH, T7, URIC #### [facility] [address] [place] [address] Dr. Rizwana Diaz Anion gap [Moles/Vol] 11.3 mmol/L Normal [facility] Comment on above: Performed By: #### C MP, LIPID, TSH, T7, URIC #### [facility] [address] [place] [address] Dr. Rizwana Diaz AST [Catalytic activity/Vol] 86 U/L Critically high 15-37 [facility] Comment on above: Performed By: #### C MP, LIPID, TSH, T7, URIC #### [facility] [address] [place] [address] Dr. Rizwana Diaz Bilirubin [Mass/Vol] 0.6 mg/dL Normal 0.2-1.0 [facility] Comment on above: Performed By: #### C MP, LIPID, TSH, T7, URIC #### [facility] [address] [place] [address] Dr. Rizwana Diaz Calcium [Mass/Vol] 8.9 mg/dL Normal 8.5-10.1 [facility] Comment on above: Performed By: #### C MP, LIPID, TSH, T7, URIC #### [facility] [address] [place] [address] Dr. Rizwana Diaz Chloride [Moles/Vol] 106 mmol/L Normal 98-107 [facility] Comment on above: Performed By: #### C MP, LIPID, TSH, T7, URIC #### [facility] [address] [place] [address] Dr. Rizwana Diaz CO2 [Moles/Vol] 26.9 mmol/L Normal 21.0-32.0 [facility] Comment on above: Performed By: #### C MP, LIPID, TSH, T7, URIC #### [facility] [address] [place] [address] Dr. Rizwana Diaz Creatinine [Mass/Vol] 1.11 mg/dL Normal 0.70-1.30 [facility] Comment on above: Performed By: #### C MP, LIPID, TSH, T7, URIC #### [facility] [address] [address] [address] Rizwana Diaz EGFR-AF INDONESIAN >60 Normal >=60 [facility] Comment on above: Performed By: #### C MP, LIPID, TSH, T7, URIC #### [facility] [address] [address] [address] Rizwana Diaz EGFR-NON AF INDONESIAN >60 Normal >=60 [facility] Comment on above: Performed By: #### C MP, LIPID, TSH, T7, URIC #### [facility] [address] [place] [address] Dr. Rizwana Diaz Globulin (S) [Mass/Vol] 4.1 g/dL Normal [facility] Comment on above: Performed By: #### C MP, LIPID, TSH, T7, URIC #### [facility] [address] [address] [address] Rizwana Diaz Glucose [Mass/Vol] 105 mg/dL Normal 74-[address] [facility] Comment on above: Performed By: #### C MP, LIPID, TSH, T7, URIC #### [facility] [address] [address] [address] Rizwana Diaz Potassium [Moles/Vol] 4.2 mmol/L Normal 3.5-5.1 [facility] Comment on above: Performed By: #### C MP, LIPID, TSH, T7, URIC #### [facility] [address] [place] [address] Dr. Rizwana Diaz Protein [Mass/Vol] 8.0 g/dL Normal 6.4-8.[address] [facility] Comment on above: Performed By: #### C MP, LIPID, TSH, T7, URIC #### [facility] [address] [place] [address] Dr. Rizwana Diaz Sodium [Moles/Vol] 140 mmol/L Normal 136-[address] [facility] Comment on above: Performed By: #### C MP, LIPID, TSH, T7, URIC #### [facility] [address] [address] [address] Rizwana Diaz Urea nitrogen [Mass/Vol] 19.0 mg/dL Critically high 7.0-18.0 [facility] Comment on above: Performed By: #### C MP, LIPID, TSH, T7, URIC #### [facility] [address] [address] [address] Rizwana Diaz Urea nitrogen/Creatinine [Mass ratio] 17.1 mg/mg Normal [facility] Comment on above: Performed By: #### C MP, LIPID, TSH, T7, URIC #### [facility] [address] [place] [address] Dr. Rizwana Diaz TSHon 12-30-2021 TSH 2.657 uIU/mL Normal 0.358-3.740 [facility] Comment on above: Performed By: #### C MP, LIPID, TSH, T7, URIC #### [facility] [address] [place] [address] Dr. Rizwana Diaz URIC ACID SERUMon 12-30-2021 Urate [Mass/Vol] 5.8 mg/dL Normal 3.5-7.2 [facility] Comment on above: Performed By: #### C MP, LIPID, TSH, T7, URIC #### [facility] [address] [place] [address] Dr. Rizwana Diaz Encounters Encounter Date Encounter Type Care Provider Facility Start: 04-12-2023 End: 04-13-2023 ambulatory Maryann Aguilar MD Facility:[facility] Start: 03-29-2023 End: 03-30-2023 ambulatory Maryann Aguilar MD Facility:[facility] Start: 03-22-2023 End: 03-23-2023 ambulatory Maryann Aguilar MD Facility:[facility] Start: 02-04-2023 End: 02-05-2023 ambulatory [facility] Start: 01-06-2022 End: 01-07-[address] JONATHAN MCKEON Facility:[facility] Start: 01-02-2022 Encounter for genera l adult medical examination without abnormal findings DR JONATHAN MCKEON [facility] Start: 12-30-2021 End: 12-31-[address] JONATHAN MCKEON Facility:[facility] Start: 12-30-2021 End: 12-31-2021 Encounter for general adult medical examination without abnormal findings DR JONATHAN MCKEON Facility:[facility] Procedures Date Procedure Procedure Detail Performing Clinician Start: 12-30-[address] NNEKA MCKEON Comment on above: Performed By: #### P SASC #### [facility] [address] [address] [address] Rizwana Diaz Payers Date Payer Category Payer Unknown 1960 Unknown [id number] 2.16.84 [id number] 1960 Unknown [id number] 2.16.84 [id number] 1960 Unknown [id number] 2.16. [id number] 1960 Unknown [id number] 2.16. [id number] 1960 Unknown [id number] 2.16. [id number] 1960 Unknown [id number] Summary Purpose Family History No Family History Records FoundNo Family History Records FoundNo Family History Records Found Advance Directives No Advanced Directives Records FoundNo Advanced Directives Records FoundNo Advanced Directives Records Found Additional Source Comments (unrecognized sect ion and content) No Status Records FoundNo Status Records FoundNo Status Records Found INFORMATION SOURCE (unrecogn ized section and content) DATE CREATED AUTHOR 02/14/2022 [facility] DATE CREATED AUTHOR AUTHOR'S ORGANIZ ATION 02/27/2023 [facility] DATE CREATED AUTHOR AUTHOR'S ORGANIZ ATION 04/19/2023 [facility] FOR RECORDS PERTAINING TO PATIENTS WHO ARE OR HAVE BEEN ENROLLED IN A CHEMICAL DEPENDENCY/SUBSTANCEABUSE PROGRAM, SOME INFORMATION MAY BE OMITTED. This clinical summary was aggregated from multiple sources. Caution should be exercised in using it in the provision of clinical care. This summary normalizes information from multiple sources, and as a consequence, information in this document may materially change the coding, format and clinical context of patient data. In addition, data may be omitted in some cases. CLINICAL DECISIONS SHOULD BE BASED ON THE PRIMARY CLINICAL RECORDS. [facility]. provides no warranty or guarantee of the accuracy or completeness of information in this document.
[2023-08-17 08:17] LABS: Basophils Percent Auto 0.4 % (0.2-2.0); Eosinophils Absolute Auto 0.2 10^3/uL (0.0-0.7); Eosinophils Percent Auto 2.7 % (0.9-7.0); Hematocrit 45.1 % (42.0-54.0); Hemoglobin 14.7 g/dL (14.0-18.0); Immature Granulocytes Abs Auto 0.03 10^3/uL (0.00-0.03); Immature Granulocytes Pct Auto 0.4 % (0.0-0.5); Lymphocytes Absolute Auto 1.8 10^3/uL (1.2-3.8); Lymphocytes Percent Auto 22.3 % (20.5-60.0); Mean Corpuscular HGB Conc 32.6 g/dL (29.9-35.2); Mean Corpuscular Hemoglobin 30.6 pg (25.9-34.0); Mean Corpuscular Volume 93.8 fL (80.0-94.0); Mean Platelet Volume 10.6 fL (9.5-13.5); Monocytes Absolute Auto 0.7 10^3/uL (0.3-0.8); Monocytes Percent Auto 8.5 % (1.7-12.0); Neutrophils Absolute Auto 5.3 10^3/uL (1.4-6.5); Neutrophils Percent Auto 65.7 % (43.0-75.0); Platelet Count 188 10^3/uL (150-450); Red Blood Count 4.81 10^6/uL (4.70-6.10); Red Cell Distribution Width 12.4 % (11.0-15.0)
[2023-08-17 08:24] LABS: Estimated Average Glucose 114 mg/dL; Glycohemoglobin A1C 5.6 % (4.5-6.2)
[2023-08-17 08:53] LABS: Alanine Aminotransferase 222 U/L (16-63); Albumin Globulin Ratio 0.9; Albumin Level 3.7 g/dL (3.4-5.0); Alkaline Phosphatase 87 U/L (46-116); Anion Gap 10.9; Aspartate Amino Transferase 81 U/L (15-37); BUN Creatinine Ratio 22.8; Bilirubin Total 0.5 mg/dL (0.2-1.0); Calcium 9.2 mg/dL (8.5-10.1); Chloride 106 mmol/L (98-107); Chol HDL Ratio 3.8; Cholesterol 157 mg/dL (<=200); Estimated GFR (African America >60 (>=60); Estimated GFR (Non-African Ame >60 (>=60); Free T3 1.12 pg/mL (2.18-3.98); Globulin 4.2 g/dL; Glucose 97 mg/dL (74-106); HDL Cholesterol 41 mg/dL (40-60); Potassium 3.9 mmol/L (3.5-5.1); Sodium 142 mmol/L (136-145); Thyroid Stimulating Hormone 5.756 uIU/mL (0.358-3.740); Total Protein 7.9 g/dL (6.4-8.2); Triglycerides 80 mg/dL (<=150); Uric Acid 6.1 mg/dL (3.5-7.2)
[2023-08-17 08:59] LABS: Prostate Specific Antigen Scrn 0.34 ng/mL (<=4.00)
[2023-08-18 11:08] LABS: Insulin 9.6 uIU/mL (2.6-24.9)
== END 2023-08-17 07:52 | disposition home or self-care (01) ==
PROVIDERS: PCP Family Medicine; Visit Provider Family Medicine
DX: F41.9 Anxiety disorder, unspecified (principal); I10 Essential (primary) hypertension; E78.5 Hyperlipidemia, unspecified; R73.09 Other abnormal glucose; Z12.5 Encounter for screening for malignant neoplasm of prostate; Z12.12 Encounter for screening for malignant neoplasm of rectum
CPT/HCPCS: 36415; 80053; 80061; 83036; 83525; 84436; 84443; 84481; 84550; 85025; G0103

== ENCOUNTER 2024-12-05 06:50 | Outpatient (OUT) | payer MEDICARE, OTHER, SELFPAY ==
--- OUTSIDE RECORDS SUMMARY | 2024-12-05 06:56 | XMS_ITS | CCD ---
Author Organization [facility] Care Team Providers Care Dry House Tender Name Role Phone DR JONATHAN MCKEON Consulting Unavailable DR JONATHAN MCKEON Attending Unavailable LINDA, DR CASTILLO Admitting Unavailable LINDA, DR CASTILLO Primary Care Unavailable DR JONATHAN MCKEON Primary Care Unavailable DR JONATHAN MCKEON Consulting Unavailable LINDA, DR CASTILLO Attending Unavailable LINDA, DR CASTILLO Admitting Unavailable OVKALYANI VALENCIAISON Referring Unavailable Jeff CADENA, Maryann Webb Attending Unavailable Jeff CADENA, Maryann Webb Attending Unavailable Jeff CADENA, Maryann Webb Attending Unavailable Allergies Allergy Classification Reported Allergen(s) Allergy Type Date of Onset Reaction(s) Facility (1 source) ALLERGIES NOT ON FILE; Translations: [ALLERGIES NOT ON FILE] Propensity to adverse reactions (disorder) [facility] Repository Problems Problem Classification Problem [...] Test Name Value Interpretation Reference Range Facility 3602-26-2023 36 LVM with pt to call to schedule consult if they would like. Requested Hip XR done while at ER to be pushed. Normal [facility] 3602-16-2023 36 Pt is currently in [place] ER and Dr. Glover was notified by ER staff. Will attempt to reach pt to see if they are wanting to schedule at this time. Will reach out to [place] to have new images, if any, pushed. [facility] 02-08-2023 36 Called pt to schedule consult. Spoke with who said that they were told to say that they are going to wait to make an appt for now. [facility] 02-04-2023 36 LVM for pt to call clinic to schedule consult for Lumbar Stenosis with Elisabeth Santana CNP. Pt was instructed to call clinic number [phone] and can schedule with anyone who answers. Imaging requested from [place]. [facility] Telephoneon 02-04-2023 Telephone [phone] Terry Myers 1960 M Date Provider Department Center 02/04/2023 HELLEN JEFFERSON [facility] SURG Second Fl No family history on file Reason for Visit and Comments: Referral [825] [facility] HEPATITIS PANEL, ACUTEon HBsAg Screen Negative Normal Negative [facility] Comment on above: Performed By: #### H EPACUT #### [facility] [address] [address] [address] Rizwana Diaz HCV AB >11.0 Critically high 0.0-0.9 [facility] Comment on above: Result Comment: . Performed By: #### H EPACUT #### [facility] [address] [address] [address] Rizwana Diaz HCV log10 5.140 log10 IU/mL Normal [facility] Comment on above: Performed By: #### H EPACUT #### [facility] [address] [address] [address] Rizwana iDaz Hep A Ab, IgM Negative Normal Negative [facility] Comment on above: Performed By: #### H EPACUT #### [facility] [address] [address] [address] Rizwana Diaz Hep B Core Ab, IgM Negative Normal Negative [facility] Comment on above: Performed By: #### H EPACUT #### [facility] [address] [address] [address] Rizwana Diaz Hep C Quantitation [id number] IU/mL Normal [facility] Comment on above: Performed By: #### H EPACUT #### [facility] [address] [place] [address] Dr. Rizwana Diaz Interpretation Comment Normal [facility] Comment on above: Result Comment: Posi tive HCV antibody screen with the presence of HCV RNA is consistent with active infection. Performed By: #### H EPACUT #### [facility] [address] [place] [address] Dr. Rizwana Diaz Test Information: Comment Normal [facility] Comment on above: Result Comment: The quantitative range of this assay is 15 IU/mL to 100 million IU/mL. Performed By: #### H EPACUT #### [facility] [address] [place] [address] Dr. Rizwana Diaz LIVER PROFILEon 01-06-2022 Albumin [Mass/Vol] 3.6 g/dL Normal 3.4-5.0 [facility] Comment on above: Performed By: #### L IVER #### [facility] [address] [place] [address] Dr. Rizwana Diaz Albumin/Globulin [Mass ratio] 0.9 {ratio} Normal [facility] Comment on above: Performed By: #### L IVER #### [facility] [address] [place] [address] Dr. Rizwana Diaz ALP [Catalytic activity/Vol] 75 U/L Normal 46-116 [facility] Comment on above: Performed By: #### L IVER #### [facility] [address] [place] [address] Dr. Rizwana Diaz ALT [Catalytic activity/Vol] 120 U/L Critically high 16-63 [facility] Comment on above: Performed By: #### L IVER #### [facility] [address] [place] [address] Dr. Rizwana Diaz AST [Catalytic activity/Vol] 56 U/L Critically high 15-37 [facility] Comment on above: Performed By: #### L IVER #### [facility] [address] [place] [address] Dr. Rizwana Diaz BILI, CONJUGATED 0.2 mg/dL Normal 0.0-0.2 [facility] Comment on above: Performed By: #### L IVER #### [facility] [address] [place] [address] Dr. Rizwana Diaz Bilirubin [Mass/Vol] 0.6 mg/dL Normal 0.2-1.0 [facility] Comment on above: Performed By: #### L IVER #### [facility] [address] [place] [address] Dr. Rizwana Diaz Globulin (S) [Mass/Vol] 3.8 g/dL Normal [facility] Comment on above: Performed By: #### L IVER #### [facility] [address] [place] [address] Dr. Rizwana Diaz Protein [Mass/Vol] 7.4 g/dL Normal 6.4-8.2 [facility] Comment on above: Performed By: #### L IVER #### [facility] [address] [place] [address] Dr. Rizwana Diaz CBC AUTO DIFFon 12-30-2021 BASO # 0.0 103/ul Normal 0.0-0.1 [facility] Comment on above: Performed By: #### C BC #### [facility] [address] [place] [address] Dr. Rizwana Diaz Basophils/100 WBC (Bld) 0.4 % Normal 0.2-2.0 [facility] Comment on above: Performed By: #### C BC #### [facility] [address] [place] [address] Dr. Rizwana Diaz EO # 0.3 103/ul Normal 0.0-0.7 [facility] Comment on above: Performed By: #### C BC #### [facility] [address] [place] [address] Dr. Rizwana Diaz Eosinophils/100 WBC (Bld) 4.0 % Normal 0.9-7.0 [facility] Comment on above: Performed By: #### C BC #### [facility] [address] [place] [address] Dr. Rizwana Diaz Erythrocyte distribution width (RBC) [Ratio] 12.4 % Normal 11.0-15.0 [facility] Comment on above: Performed By: #### C BC #### [facility] [address] [place] [address] Dr. Rizwana Diaz Hematocrit (Bld) [Volume fraction] 44.5 % Normal 42.0-54.0 [facility] Comment on above: Performed By: #### C BC #### [facility] [address] [place] [address] Dr. Rizwana Diaz Hemoglobin (Bld) [Mass/Vol] 15.0 g/dL Normal 14.0-18.0 [facility] Comment on above: Performed By: #### C BC #### [facility] [address] [place] [address] Dr. Rizwana Diaz IG # 0.02 10e3/ul Normal 0.00-0.03 [facility] Comment on above: Performed By: #### C BC #### [facility] [address] [place] [address] Dr. Rizwana Diaz IG % 0.3 % Normal 0.0-0.5 [facility] Comment on above: Performed By: #### C BC #### [facility] [address] [place] [address] Dr. Rizwana Diaz LYMPH # 1.4 103/ul Normal 1.2-3.8 [facility] Comment on above: Performed By: #### C BC #### [facility] [address] [place] [address] Dr. Rizwana Diaz Lymphocytes/100 WBC (Bld) 18.3 % Critically low 20.5-60.0 [facility] Comment on above: Performed By: #### C BC #### [facility] [address] [place] [address] Dr. Rizwana Diaz MANUAL DIFF REQ NO Normal [facility] Comment on above: Performed By: #### C BC #### [facility] [address] [address] [address] Rizwana Diaz MCH (RBC) [Entitic mass] 31.3 pg Normal 25.9-34.[address] [facility] Comment on above: Performed By: #### C BC #### [facility] [address] [place] [address] Dr. Rizwana Diaz MCHC (RBC) [Mass/Vol] 33.7 g/dL Normal 29.9-35.[address] [facility] Comment on above: Performed By: #### C BC #### [facility] [address] [place] [address] Dr. Rizwana Diaz MCV (RBC) [Entitic vol] 92.9 fL Normal 80.0-94.0 [facility] Comment on above: Performed By: #### C BC #### [facility] [address] [place] [address] Dr. Rizwana Diaz MONO # 0.9 103/ul Critically high 0.3-0.8 [facility] Comment on above: Performed By: #### C BC #### [facility] [address] [place] [address] Dr. Rizwana Diaz Monocytes/100 WBC (Bld) 12.7 % Critically high 1.7-12.0 [facility] Comment on above: Performed By: #### C BC #### [facility] [address] [place] [address] Dr. Rizwana Diaz NEUT # 4.8 103/ul Normal 1.4-6.[address] [facility] Comment on above: Performed By: #### C BC #### [facility] [address] [place] [address] Dr. Rizwana Diaz Neutrophils/100 WBC (Bld) 64.3 % Normal 43.0-75.[address] [facility] Comment on above: Performed By: #### C BC #### [facility] [address] [place] [address] Dr. Rizwana Diaz Platelet mean volume (Bld) [Entitic vol] 11.3 fL Normal 9.5-13.[address] [facility] Comment on above: Performed By: #### C BC #### [facility] [address] [address] [address] Rizwana Diaz PLT 175 103/ul Normal 150-450 [facility] Comment on above: Performed By: #### C BC #### [facility] [address] [address] [address] Rizwana Diaz RBC 4.79 106/ul Normal 4.70-6.10 [facility] Comment on above: Performed By: #### C BC #### [facility] [address] [place] [address] Dr. Rizwana Diaz WBC 7.4 103/ul Normal 4.0-11.0 [facility] Comment on above: Performed By: #### C BC #### [facility] [address] [place] [address] Dr. Rizwana Diaz FREE THYROXINE INDEX T7on FTI 1.83 Normal 1.30-4.50 [facility] Comment on above: Performed By: #### C MP, LIPID, TSH, T7, URIC #### [facility] [address] [place] [address] Dr. Rizwana Diaz T3U 31.0 % Critically low 33.0-40.0 [facility] Comment on above: Performed By: #### C MP, LIPID, TSH, T7, URIC #### [facility] [address] [place] [address] Dr. Rizwana Diaz T4 [Mass/Vol] 5.90 ug/dL Normal 4.50-12.10 [facility] Comment on above: Performed By: #### C MP, LIPID, TSH, T7, URIC #### [facility] [address] [place] [address] Dr. Rizwana Diaz GLYCOHEMOGLOBIN A1Con 2021 ADA RECOMMENDATION SEE BELOW Normal [facility] Comment on above: Result Comment: ADA RECOMMENDED LIMIT 4.0 - 6.0 ADA THERAPEUTIC TARGET < 7.0 ACTION SUGGESTED > 7.0 Performed By: #### A 1C #### [facility] [address] [place] [address] Dr. Rizwana Diaz Glucose [Mass/Vol] 111 mg/dL Normal [facility] Comment on above: Performed By: #### A 1C #### [facility] [address] [address] [address] Rizwana Diaz HbA1c (Bld) [Mass fraction] 5.5 % Normal 4.5-6.2 [facility] Comment on above: Performed By: #### A 1C #### [facility] [address] [address] [address] Rizwana Diaz LIPID PROFILEon 12-30-2021 CHOL-HDL RATIO NORM SEE BELOW Normal [facility] Comment on above: Result Comment: 3.3 - 4.4 LOW RISK 4.4 - 7.1 AVERAGE RISK 7.1 - 11.0 MODERATE RISK >11.0 HIGH RISK Performed By: #### C MP, LIPID, TSH, T7, URIC #### [facility] [address] [place] [address] Dr. Rizwana Diaz Cholesterol [Mass/Vol] 144 mg/dL Normal <=200 [facility] Comment on above: Performed By: #### C MP, LIPID, TSH, T7, URIC #### [facility] [address] [address] [address] Rizwana Diaz Cholesterol in HDL [Mass/Vol] 51 mg/dL Normal 40-60 [facility] Comment on above: Performed By: #### C MP, LIPID, TSH, T7, URIC #### [facility] [address] [address] [address] Rizwana Diaz Cholesterol in LDL [Mass/Vol] 82.2 mg/dL Normal [facility] Comment on above: Performed By: #### C MP, LIPID, TSH, T7, URIC #### [facility] [address] [address] [address] Rizwana Diaz Cholesterol.total/Cho lesterol in HDL [Mass ratio] 2.8 {ratio} Normal [facility] Comment on above: Performed By: #### C MP, LIPID, TSH, T7, URIC #### [facility] [address] [address] [address] Rizwana Diaz HDL NORMAL > or = 60 mg/dl - LOW CARDIOVASCULAR RISK <40 mg/dl - HIGH CARDIOVASCULAR RISK Normal [facility] Comment on above: Performed By: #### C MP, LIPID, TSH, T7, URIC #### [facility] [address] [address] [address] Rizwana Diaz LDL CALC NORMAL SEE BELOW Normal [facility] Comment on above: Result Comment: <100 mg/dl OPTIMAL 100 - 129 mg/dl NEAR OR ABOVE OPTIMAL 130 - 159 mg/dl BORDERLINE HIGH 160 - 189 mg/dl HIGH >190 mg/dl VERY HIGH Performed By: #### C MP, LIPID, TSH, T7, URIC #### [facility] [address] [address] [address] Rizwana Diaz Triglyceride [Mass/Vol] 54 mg/dL Normal <=150 [facility] Comment on above: Performed By: #### C MP, LIPID, TSH, T7, URIC #### [facility] [address] [address] [address] Rizwana Diaz VLDL CALC 10.8 mg/dL Normal [facility] Comment on above: Performed By: #### C MP, LIPID, TSH, T7, URIC #### [facility] [address] [address] [address] Rizwana Diaz PROF 14(COMP METB)on 022 Albumin [Mass/Vol] 3.9 g/dL Normal 3.4-5.0 [facility] Comment on above: Performed By: #### C MP, LIPID, TSH, T7, URIC #### [facility] [address] [address] [address] Rizwana Diaz Albumin/Globulin [Mass ratio] 1.0 {ratio} Normal [facility] Comment on above: Performed By: #### C MP, LIPID, TSH, T7, URIC #### [facility] [address] [address] [address] Rizwana Diaz ALP [Catalytic activity/Vol] 89 U/L Normal 46-116 [facility] Comment on above: Performed By: #### C MP, LIPID, TSH, T7, URIC #### [facility] [address] [address] [address] Rizwana Diaz ALT [Catalytic activity/Vol] 174 U/L Critically high 16-63 [facility] Comment on above: Performed By: #### C MP, LIPID, TSH, T7, URIC #### [facility] [address] [address] [address] Rizwana Diaz Anion gap [Moles/Vol] 11.3 mmol/L Normal Th e [facility] Comment on above: Performed By: #### C MP, LIPID, TSH, T7, URIC #### [facility] [address] [address] [address] Rizwana Diaz AST [Catalytic activity/Vol] 86 U/L Critically high 15-37 [facility] Comment on above: Performed By: #### C MP, LIPID, TSH, T7, URIC #### [facility] [address] [place] [address] Dr. Rizwana Diaz Bilirubin [Mass/Vol] 0.6 mg/dL Normal 0.2-1.0 [facility] Comment on above: Performed By: #### C MP, LIPID, TSH, T7, URIC #### [facility] [address] [place] [address] Dr. Rizwana Diaz Calcium [Mass/Vol] 8.9 mg/dL Normal 8.5-10.1 [facility] Comment on above: Performed By: #### C MP, LIPID, TSH, T7, URIC #### [facility] [address] [address] [address] Rizwana Diaz Chloride [Moles/Vol] 106 mmol/L Normal 98-107 [facility] Comment on above: Performed By: #### C MP, LIPID, TSH, T7, URIC #### [facility] [address] [address] [address] Rizwana Diaz CO2 [Moles/Vol] 26.9 mmol/L Normal 21.0-32.0 [facility] Comment on above: Performed By: #### C MP, LIPID, TSH, T7, URIC #### [facility] [address] [place] [address] Dr. Rizwana Diaz Creatinine [Mass/Vol] 1.11 mg/dL Normal 0.70-1.30 [facility] Comment on above: Performed By: #### C MP, LIPID, TSH, T7, URIC #### [facility] [address] [place] [address] Dr. Rizwana Diaz EGFR-AF TAIWANESE >60 Normal >=60 [facility] Comment on above: Performed By: #### C MP, LIPID, TSH, T7, URIC #### [facility] [address] [place] [address] Dr. Rizwana Diaz EGFR-NON AF TAIWANESE >60 Normal >=60 [facility] Comment on above: Performed By: #### C MP, LIPID, TSH, T7, URIC #### [facility] [address] [place] [address] Dr. Rizwana Diaz Globulin (S) [Mass/Vol] 4.1 g/dL Normal [facility] Comment on above: Performed By: #### C MP, LIPID, TSH, T7, URIC #### [facility] [address] [place] [address] Dr. Rizwana Diaz Glucose [Mass/Vol] 105 mg/dL Normal 74-106 [facility] Comment on above: Performed By: #### C MP, LIPID, TSH, T7, URIC #### [facility] [address] [place] [address] Dr. Rizwana Diaz Potassium [Moles/Vol] 4.2 mmol/L Normal 3.5-5.[address] [facility] Comment on above: Performed By: #### C MP, LIPID, TSH, T7, URIC #### [facility] [address] [place] [address] Dr. Rizwana Diaz Protein [Mass/Vol] 8.0 g/dL Normal 6.4-8.2 [facility] Comment on above: Performed By: #### C MP, LIPID, TSH, T7, URIC #### [facility] [address] [place] [address] Dr. Rizwana Diaz Sodium [Moles/Vol] 140 mmol/L Normal 136-145 [facility] Comment on above: Performed By: #### C MP, LIPID, TSH, T7, URIC #### [facility] [address] [address] [address] Rizwana Diaz Urea nitrogen [Mass/Vol] 19.0 mg/dL Critically high 7.0-18.0 [facility] Comment on above: Performed By: #### C MP, LIPID, TSH, T7, URIC #### [facility] [address] [address] [address] Rizwana Diaz Urea nitrogen/Creatinine [Mass ratio] 17.1 mg/mg Normal [facility] Comment on above: Performed By: #### C MP, LIPID, TSH, T7, URIC #### [facility] [address] [address] [address] Rizwana Diaz TSHon 12-30-2021 TSH 2.657 uIU/mL Normal 0.358-3.740 [facility] Comment on above: Performed By: #### C MP, LIPID, TSH, T7, URIC #### [facility] [address] [address] [address] Rizwana Diaz URIC ACID SERUMon 12-30-2021 Urate [Mass/Vol] 5.8 mg/dL Normal 3.5-7.2 [facility] Comment on above: Performed By: #### C MP, LIPID, TSH, T7, URIC #### [facility] [address] [address] [address] Rizwana Diaz Encounters Encounter Date Encounter Type Care Provider Facility Start: 04-12-2023 End: 04-13-2023 ambulatory Maryann Aguilar MD Facility:[facility] Start: 03-29-2023 End: 03-30-2023 ambulatory Maryann Aguilar MD Facility:[facility] Start: 03-22-2023 End: 03-23-2023 ambulatory Maryann Aguilar MD Facility:[facility] Start: 02-04-2023 End: 02-05-2023 ambulatory [facility] Start: 01-06-2022 End: 01-07-[address] JONATHAN MCKEON Facility: Start: 01-02-2022 Encounter for genera l adult medical examination without abnormal findings DR JONATHAN MCKEON [facility] Start: 12-30-2021 End: 12-31-[address] JONATHAN MCKEON Facility:[facility] Start: 12-30-2021 End: 12-31-2021 Encounter for general adult medical examination without abnormal findings DR JONATHAN MCKEON Facility:[facility] Procedures Date Procedure Procedure Detail Performing Clinician Start: 12-30-[address] NNEKA MCKEON Comment on above: Performed By: #### P [facility] #### [facility] [address] [address] [address] Rizwana Diaz Payers Date Payer Category Payer Unknown 1960 Unknown [id number] 2.16.84 [id number] 1960 Unknown [id number] 2.16.84 [id number] 1960 Unknown [id number] 2.16. [id number] 1960 Unknown [id number] 2.16. [id number] 1960 Unknown [id number] 2.16. [id number] 1960 Unknown [id number] Summary Purpose Family History No Family History Records FoundNo Family History Records FoundNo Family History Records Found Advance Directives No Advanced Directives Records FoundNo Advanced Directives Records FoundNo Advanced Directives Records Found Additional Source Comments (unrecognized sect ion and content) No Status Records FoundNo Status Records FoundNo Status Records Found INFORMATION SOURCE (unrecogn ized section and content) DATE CREATED AUTHOR 02/14/[address] [facility] DATE CREATED AUTHOR AUTHOR'S ORGANIZ ATION 02/27/2023 [facility] DATE CREATED AUTHOR AUTHOR'S ORGANIZ ATION 04/19/2023 [facility] FOR RECORDS PERTAINING TO PATIENTS WHO ARE [...] BE BASED ON THE PRIMARY CLINICAL RECORDS. [facility]. provides no warranty or guarantee of the accuracy or completeness of information in this document.
[2024-12-05 07:29] LABS: Basophils Percent Auto 0.3 % (0.2-2.0); Eosinophils Absolute Auto 0.4 10^3/uL (0.0-0.7); Eosinophils Percent Auto 5.3 % (0.9-7.0); Hematocrit 42.3 % (42.0-54.0); Hemoglobin 14.6 g/dL (14.0-18.0); Immature Granulocytes Abs Auto 0.01 10^3/uL (0.00-0.03); Immature Granulocytes Pct Auto 0.1 % (0.0-0.5); Lymphocytes Percent Auto 25.9 % (20.5-60.0); Mean Corpuscular HGB Conc 34.5 g/dL (29.9-35.2); Mean Corpuscular Hemoglobin 31.6 pg (25.9-34.0); Mean Corpuscular Volume 91.6 fL (80.0-94.0); Monocytes Absolute Auto 0.8 10^3/uL (0.3-0.8); Monocytes Percent Auto 10.1 % (1.7-12.0); Neutrophils Absolute Auto 4.4 10^3/uL (1.4-6.5); Neutrophils Percent Auto 58.3 % (43.0-75.0); Platelet Count 188 10^3/uL (150-450); Red Blood Count 4.62 10^6/uL (4.70-6.10); Red Cell Distribution Width 12.6 % (11.0-15.0); White Blood Count 7.6 10^3/uL (4.0-11.0)
[2024-12-05 08:23] LABS: Prostate Specific Antigen Scrn 0.42 ng/mL (<=4.00)
[2024-12-05 08:26] LABS: Alanine Aminotransferase 122 U/L (16-63); Albumin Level 3.6 g/dL (3.4-5.0); Alkaline Phosphatase 107 U/L (46-116); Anion Gap 11.3; Aspartate Amino Transferase 60 U/L (15-37); BUN Creatinine Ratio 12.1; Bilirubin Total 0.5 mg/dL (0.2-1.0); Calcium 9.3 mg/dL (8.5-10.1); Carbon Dioxide 30.9 mmol/L (21.0-32.0); Chloride 106 mmol/L (98-107); Cholesterol 128 mg/dL (<=200); Estimated GFR (African America >60 (>=60 mL/min/1.73m^2); Estimated GFR (Non-African Ame 54 (>=60 mL/min/1.73m^2); Free T3 4.23 pg/mL (2.18-3.98); Globulin 3.7 g/dL; Glucose 105 mg/dL (74-106); HDL Cholesterol 42 mg/dL (40-60); LDL Cholesterol Calculated 72.2 mg/dL; Potassium 4.2 mmol/L (3.5-5.1); Sodium 144 mmol/L (136-145); Thyroid Stimulating Hormone 3.589 uIU/mL (0.358-3.740); Total Protein 7.3 g/dL (6.4-8.2); Triglycerides 69 mg/dL (<=150); Troponin I High Sensitivity 14.3 pg/mL (4.0-76.1); VLDL CHOLESTEROL 13.8 mg/dL
[2024-12-05 10:39] LABS: Estimated Average Glucose 120 mg/dL; Glycohemoglobin A1C 5.8 % (4.5-6.2)
[2024-12-06 04:07] LABS: Insulin 12.7 uIU/mL (2.6-24.9)
== END 2024-12-05 06:51 | disposition home or self-care (01) ==
LOC: LAB 06:55
PROVIDERS: PCP Family Medicine; Visit Provider Family Medicine
DX: R06.00 Dyspnea, unspecified (principal); E78.5 Hyperlipidemia, unspecified; R73.09 Other abnormal glucose; Z12.12 Encounter for screening for malignant neoplasm of rectum; Z12.5 Encounter for screening for malignant neoplasm of prostate; I50.30 Unspecified diastolic (congestive) heart failure; I11.0 Hypertensive heart disease with heart failure
CPT/HCPCS: 80053; 80061; 83036; 83525; 83880; 84436; 84443; 84481; 84484; 85025; G0103

== ENCOUNTER 2024-12-13 08:25 | Outpatient (OUT) | payer MEDICARE, OTHER, SELFPAY ==
--- OUTSIDE RECORDS SUMMARY | 2024-01-20 11:30 | XMS_ITS ---
Author Organization The [facility] in [place] Address [address] [place] [address] Care Team Providers Care Supervisor Mails Name Role Phone Abilio Mckeon Primary Care Provider [phone] Allergies No Known Allergies REASON FOR VISIT blood pressure elevated- 180-196/118-120, Left ear plugged, light headed, headaches Medications Medication SIG (Take, Route, Frequency, Duration) Notes Start Date End Date Status cloNIDine HCl 0.1 MG 1 capsule Orally TI D for 30 days 01/25/2023 Active Olmesartan Medoxomil 40 MG TAKE 1 TABLET BY MOUTH EVERY DAY for 90 Active tiZANidine HCl 4 MG 2 tablets Orally at bedtime Active Meloxicam 15 MG 1 tablet Orally Once a day for 30 08/16/2023 Active Metoprolol Succinate ER 50 MG 3 tablet Orally Once a day for 90 days Active Diclofenac Sodium 75 MG TAKE 1 TABLET BY MOUTH TWICE A DAY NEEDED for 90 Active Lyrica 100 MG 1 capsule Orally BID for 30 days 05/26/2023 Active Cytomel 5 MCG 2 tablets Orally Onc e a day for 30 days 08/19/2023 Active Social History Tobacco Use: Social History Observation Description Date Details (start date - stop date) Current Smoker 07/05/1975 - NA Tobacco Use/Smoking Question Answer Notes Patient is a current smoker When did you start smoking? 07/05/1975 How often do you smoke cigarettes? every day Vital Signs Weight 157.6 lbs 01/20/2024 Height 67 in 01/20/2024 Blood pressure systolic 172 mm Hg 01/20/20 24 Blood pressure diastolic 102 mm Hg 024 BMI 24.68 kg/m2 01/20/2024 Encounters Encounter Location Date Provider Diagnosis [facility] [address] [place] [address] 01/20/2024 Abilio Mckeon Hypertension I10 Assessments Encounter Date Diagnosis (ICD Code) Assessment Notes Treatment Notes Treatment Clinical Notes Section Notes 01/20/2024 Hypertension (ICD-10 - I10) morning meds -one of each bp and in evening 1 clonidine and 2 metoprolol Plan Of Treatment Treatment Notes Assessment Notes Hypertension morning meds -one of each bp and in evening 1 clonidine and 2 metoprolol Progress Notes * GONZALES Terry EDOB:1960 (63 yo M)Acc No.[id number]:01/20/2024 Progress Note Patient: Terry MI Provider: Milagros Mckeon ([facility])MD :1960 A ge:63 Y S ex:Male Date:01/20/2024 Address:[address] [place], [place] [id number] Pcp:JONATHAN MCKEON Check In:03:23 PM ESTCheck O ut:04:24 PM EST Subjective: * Chief Complaints: * 1 . Blood pressure elevated- 180-196/118-120. 2. Left ear plugged, light headed, headaches. * ROS: E ENT: hearing changes d enies. v isual changes d enies.?non-healing mouth sores d enies. s wollen glands or neck lumps d enies. h oarseness d enies. s ore throat d enies. d ifficulty swallowing d enies. n ose bleeds d enies. n hanh congestion d enies. e ar ache d enies. e ar discharge?denies. r inging in ears d enies. l ight sensitivity d enies. e ye pain d enies. b lurring d enies. e ye irritation d enies. d ouble vision d enies.?vision loss d enies. G eneral/Constitutional: Sweats: D enies. F atigue d enies. S leep problems d enies. A norexia d enies. M alaise d enies. W eight loss d enies.?Fatigue or Weakness d enies. F ever or Chills d enies. C ardiovascular: Shortness of Breath w/lying flat d enies. L ightheadedness/dizziness d enies. C hest tightness/ heavy pressure d enies. S welling of legs, ankles, or feet d enies. W aking up with shortness of breath d enies. C hest pain denies. P alpitations d enies. W eight gain d enies. R espiratory: Chronic or frequent cough d enies. C oughing up blood?denies. D ifficulty breathing d enies. P roductive cough d enies. S noring?denies. S hortness of breath that awakens from sleep (PND) d enies. C hest pain d enies. S putum production d enies. W heezing d enies. M usculoskeletal: Joint pain d enies. J oint Fluid d enies. B ack pain d enies. K nee pain d enies. N ghanshyam pain d enies. J oint Stiffness d enies. M uscle cramps d enies. W eakness of muscles d enies. A rthritis d enies. M uscle aches d enies. P ain in shoulder(s) d enies. S wollen joints d enies. 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, thoracic region Modified On:02/08/2023/U Status:confirmed M48.061 Spinal stenosis, lum bar region without neurogenic claudication Modified On:01/29/2023/U Status:confirmed M47.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 * Surgical History: D enies Past Surgical History. * Hospitalization/Major Diagno stic Procedure: D enies Past Hospitalization. * Family History: F ather: 63 yrs. M other: alive, diagnosed with Diabetes mellitus without mention of complication, type II or unspecified type, not stated as uncontrolled, Unspecified heart disease. B rother(s): alive, diagnosed with Diabetes mellitus without mention of complication, type II or unspecified type, not stated as uncontrolled. 2 brother(s) . . family hx of Diabetes, Stroke/Aneurysm, Heart Disease, RA, Cancer (Dad). * Social History: T obacco Use: T obacco Use/Smoking P atient is a c urrent smoker W hen did you start smoking? 0 07/05/1975 H ow often do you smoke cigarettes? e very day * Medications: T aking cloNIDine HCl 0.1 MG Tablet 1 capsule Orally TID , Taking Cytomel(Liothyronine Sodium) 5 MCG Tablet 2 tablets Orally Once a day , Taking Diclofenac Sodium 75 MG Tablet Delayed Release TAKE 1 TABLET BY MOUTH TWICE A DAY NEEDED , Taking Lyrica(Pregabalin) 100 MG Capsule 1 capsule Orally BID , Taking Meloxicam 15 MG Tablet 1 tablet Orally Once a day , Taking Metoprolol Succinate ER 50 MG Tablet Extended Release 24 Hour 3 tablet Orally Once a day , Taking Olmesartan Medoxomil 40 MG Tablet TAKE 1 TABLET BY MOUTH EVERY DAY , Taking tiZANidine HCl 4 MG Tablet 2 tablets Orally at bedtime , Medication List reviewed and reconciled with the patient * Allergies: N .K.D.A. Objective: * Vitals: W t:157.6lbs, Ht: 67 in, BP:172/102mm Hg, BMI:24.68Index, Ht-cm: 170.18 cm, Wt-k.49 kg. * Examination: P hysical Exam: GENERAL: w ell developed, well nourished, in no acute distress. HEAD: n ormocephalic/atraumatic. EYES: p upils equal, round and reactive to light, conjunctivae and sclerae normal. EARS: n o deformity or lesion of external ear, canals and TM appear normal bilaterally, TM's intact, not inflamed with normal light reflex, hearing grossly normal to conversational speech. NOSE: n o deformity, discharge, inflammation, or lesions.? MOUTH: m ucous membranes moist, normal oropharynx and posterior pharynx without lesions or exudates, tongue normal, dentition normal. NECK: n ghanshyam supple, no masses or palpable cervical nodes, trachea midline, thyroid without nodules, masses, tenderness, or enlargement. CHEST: n o chest wall deformity, no chest wall tenderness.? LUNGS: n ormal respiratory effort and clear to auscultation, no wheezes, rales, or rhonchi, good air exchange. CARDIO: r egular rate and rhythm, normal S1 and S2, nor murmur, rub, or gallop. PULSES: n ormal capillary refill. ABDOMEN: s oft, non-distended, non-tender, no masses. MUSCULOSKELETAL: n o deformity or scoliosis noted, normal range of motion, joints normal, no erythema, edema, effusion, or ecchymosis. EXTREMITY: n o clubbing, cyanosis, edema, or deformity with normal ROM in both upper and lower bilateral extremities. NEUROLOGIC: g rossly normal. SKIN: n o rashes, ulcerations, or suspicious lesions. LYMPH NODES: n o cervical adenopathy, nodes normal. MENTAL STATUS: a lert and oriented x3, normal mood and affect. Assessment: * Assessment: 1. H ypertension - I10 (Primary) Plan: * Treatment: * Preventive Medicine: Screenings/Counseling: T OBACCO ACTION PLAN Patient counselled on the dangers of tobacco use and urged to quit. 0 01/20/2024 . * * Sign off status: Completed Visit Status: C HK (Check Out) true * Provider: Milagros Mckeon ([facility])MD Date: 01/20/2024 Generated for Printi ng/Faxing/eTransmitting on: 0 12/13/2024 08:29 AM EDT History and Physical Notes * Examination Category Sub-Category Detail Notes Category Not es Physical Exam GENERAL: well developed, well nourished, in no acute distress HEAD: normocephalic/atraum atic EYES: pupils equal, round and reactive to light, conjunctivae and sclerae normal EARS: no deformity or lesi on of external ear, canals and TM appear normal bilaterally, TM's intact, not inflamed with normal light reflex, hearing grossly normal to conversational speech NOSE: no deformity, discha rge, inflammation, or lesions MOUTH: mucous membranes [address], normal oropharynx and posterior pharynx without lesions or exudates, tongue normal, dentition normal NECK: neck supple, no mass es or palpable cervical nodes, trachea midline, thyroid without nodules, masses, tenderness, or enlargement CHEST: no chest wall deform ity, no chest wall tenderness LUNGS: normal respiratory e ffort and clear to auscultation, no wheezes, rales, or rhonchi, good air exchange CARDIO: regular rate and rhy thm, normal S1 and S2, nor murmur, rub, or gallop PULSES: normal capillary ref ill ABDOMEN: soft, non-distended, non-tender, no masses RECTAL: MUSCULOSKELETAL: no deformity or scol iosis noted, normal range of motion, joints normal, no erythema, edema, effusion, or ecchymosis EXTREMITY: no clubbing, cyanosi s, edema, or deformity with normal ROM in both upper and lower bilateral extremities NEUROLOGIC: grossly normal SKIN: no rashes, ulceratio ns, or suspicious lesions LYMPH NODES: no cervical adenopat hy, nodes normal MENTAL STATUS: alert and oriented x 3, normal mood and affect
--- OUTSIDE RECORDS SUMMARY | 2024-12-04 11:00 | XMS_ITS ---
Author Organization [facility] in [place] Address [address] [place] [address] Care Team Providers Care Security Assistant Name Role Phone Abilio Angeles Primary Care Provider Allergies No Known Allergies Results Component Value Reference Range Notes BNP Reviewed date:12/05/2024 04:32:29 PM Interpretation: Performing Lab: Notes/Report: [facility] , NT Pro B Type Natriuretic Pept 675.0 <=900.0 pg /mL Performing Lab: see note ML - [facility] LB REASON FOR VISIT SELF PAY hard time catching breathing, wants BP checked, walk to mail box good distance gets out ofbreath Medications Medication SIG (Take, Route, Frequency, Duration) Notes Start Date End Date Status Lyrica 100 MG 1 capsule Orally BID for 30 days 05/26/2023 Active Meloxicam 15 MG TAKE 1 TABLET BY WILFREDO TH EVERY DAY for 30 Active Olmesartan Medoxomil 40 MG TAKE 1 TABLET BY MOUTH EVERY DAY for 90 Active tiZANidine HCl 4 MG 2 tablets Orally at bedtime Active Metoprolol Succinate ER 50 MG TAKE 3 TABLETS BY MOUTH ONCE DAILY for 90 Active cloNIDine HCl 0.1 MG 1 capsule Orally TI D for 30 days Active Diclofenac Sodium 75 MG TAKE 1 TABLET BY MOUTH TWICE A DAY NEEDED for 90 Active Liothyronine Sodium 5 MCG TAKE 2 TABLETS BY MOUTH EVERY DAY FOR 30 DAYS for 90 Active Social History Tobacco Use: Social History Observation Description Date Details (start date - stop date) Current Smoker 07/05/1975 - NA Tobacco Use/Smoking Question Answer Notes Patient is a current smoker When did you start smoking? 07/05/1975 How often do you smoke cigarettes? every day Vital Signs Weight 162.6 lbs 12/04/2024 Height 67 in 12/04/2024 Blood pressure systolic 144 mm Hg 12/05/19 25 Blood pressure diastolic 86 mm Hg 025 BMI 25.46 kg/m2 12/04/2024 Encounters Encounter Location Date Provider Diagnosis [facility] [address] [place] [address] 12/04/2024 Abilio Karthik Essential (primary) hypertension I10 and Dyspnea R06.00 Assessments Encounter Date Diagnosis (ICD Code) Assessment Notes Treatment Notes Treatment Clinical Notes Section Notes 12/04/2024 Essential (primary) hypertension (ICD-10 - I10) 12/04/2024 Dyspnea (ICD-10 - R06.00) Plan Of Treatment Pending Test Test Name Order Date HEMOGLOBIN A1C (GLYCO) 12/04/2024 INSULIN, TOTAL 12/04/2024 LIPID PANEL (CHOL/TRIG/HDL/LDL) 12/05/19 25 Treadmill Stress Test with Nuclear Imagi ng 12/04/2024 High Sensitivity Troponin 12/04/2024 STOOL OCCULT BLOOD 12/04/2024 THYROID PANEL (T4/TSH/FREE T3) PSA, SCREENING 12/04/2024 CMP (COMP MET DOWD) w/eGFR CKD-EPI 2024 CBC WITH DIFF 12/04/2024 Progress Notes * Terry GONZALES EDOB:1960 (64 yo M)Acc No.[id number]:12/04/2024 Progress Note Patient: Terry MI Hayden Provider: Milagros Angeles ([facility])MD :1960 A ge:64 Y S ex:Male Date:12/04/2024 Address:[address] [place], [place] [id number] Check In:02:50 PM ESTCheck O ut:03:49 PM EST Subjective: * Chief Complaints: * S ELF PAY hard time catching breathingwants BP checkedWalk to mail box good distance gets out of breath * HPI: G eneral: zhu - but not having CHestpain -0 diaphoiresis -0 no nausea. * ROS: E ENT: hearing changes d [...] without myelopathy or radiculopathy, thoracic region Modified On:02/08/2023 Status:confirmed M48.061 Spinal stenosis, lum bar region without neurogenic claudication Modified On:01/29/2023 Status:confirmed M47.816 Spondylosis without myelopathy or radiculopathy, lumbar region Modified On:03/09/2023 Status:confirmed M51.26 Other intervertebral disc displacement, lumbar region Modified On:02/25/2023 Status:confirmed M51.36 Other intervertebral disc degeneration, lumbar region Modified On:03/03/2023 Status:confirmed * Medical History: * Surgical History: D enies Past Surgical History * Hospitalization/Major Diagno stic Procedure: D enies Past Hospitalization * Family History: F ather: 63 yrs. [...] cigarettes? e very day * Medications: T akingcloNIDine HCl 0.1 MG Tablet 1 capsule Orally TID Diclofenac Sodium 75 MG Tablet Delayed Release TAKE 1 TABLET BY MOUTH TWICE A DAY NEEDED Liothyronine Sodium 5 MCG Tablet TAKE 2 TABLETS BY MOUTH EVERY DAY FOR 30 DAYS Lyrica(Pregabalin) 100 MG Capsule 1 capsule Orally BID Meloxicam 15 MG Tablet TAKE 1 TABLET BY MOUTH EVERY DAY Metoprolol Succinate ER 50 MG Tablet Extended Release 24 Hour TAKE 3 TABLETS BY MOUTH ONCE DAILY Olmesartan Medoxomil 40 MG Tablet TAKE 1 TABLET BY MOUTH EVERY DAY tiZANidine HCl 4 MG Tablet 2 tablets Orally at bedtime Medication List reviewed and reconciled with the patientTaking cloNIDine HCl 0.1 MG Tablet 1 capsule Orally TID Taking Diclofenac Sodium 75 MG Tablet Delayed Release TAKE 1 TABLET BY MOUTH TWICE A DAY NEEDED Taking Liothyronine Sodium 5 MCG Tablet TAKE 2 TABLETS BY MOUTH EVERY DAY FOR 30 DAYS Taking Lyrica(Pregabalin) 100 MG Capsule 1 capsule Orally BID Taking Meloxicam 15 MG Tablet TAKE 1 TABLET BY MOUTH EVERY DAY Taking Metoprolol Succinate ER 50 MG Tablet Extended Release 24 Hour TAKE 3 TABLETS BY MOUTH ONCE DAILY Taking Olmesartan Medoxomil 40 MG Tablet TAKE 1 TABLET BY MOUTH EVERY DAY Taking tiZANidine HCl 4 MG Tablet 2 tablets Orally at bedtime Medication List reviewed and reconciled with the patient * Allergies: N .K.D.A.no[Allergies Verified] Objective: * Vitals: W t:162.6lbs, Ht: 67 in, BP:144/86mm Hg, BMI:25.46Index, Ht-cm: 170.18 cm, Wt-k.75 kg. * Examination: P hysical Exam: GENERAL: [...] mood and affect. Assessment: * Assessment: 1. E ssential (primary) hypertension - I10 (Primary) 2 . D yspnea - R06.00? Plan: * Treatment: 2. D yspnea L AB: HEMOGLOBIN A1C (GLYCO) L AB: INSULIN, TOTAL L AB: LIPID PANEL (CHOL/TRIG/HDL/LDL) L AB: STOOL OCCULT BLOOD L AB: THYROID PANEL (T4/TSH/FREE T3) L AB: PSA, SCREENING L AB: CMP (COMP MET DOWD) w/eGFR CKD-EPI L AB: CBC WITH DIFF * Labs: * L ab: BNP (Collection Date & Time - 12/05/2024 07:15 AM) * Procedure Codes: * Preventive Medicine: Screenings/Counseling: B IA ACTION PLAN Above Normal BMI Follow-up D ietary management education, guidance, and counseling T OBACCO ACTION PLAN Patient counselled on the dangers of tobacco use and urged to quit. 0 12/04/2024 . F ALL RISK SCREENING Fall Risk Assessment: N o falls in the past year * * Sign off status: Completed Visit Status: C HK (Check Out) true * Provider: Milagros Angeles ([facility])MD Date: 0 12/04/2024 Generated for Printi ng/Faxing/eTransmitting on: 0 12/13/2024 08:29 AM EDT History and Physical Notes * HPI (History of Present Illness) Category Sub-Category Detail Notes Category Not es General zhu - but not h aving CHestpain -0 diaphoiresis -0 no nausea Examination Category Sub-Category Detail Notes Category Not [...]
--- OUTSIDE RECORDS SUMMARY | 2024-12-05 12:30 | XMS_ITS ---
Author Organization The [facility] in [place] Address [address] [place] [address] Care Team Providers Care Title Assistant Name Role Phone Abilio Angeles Primary Care Provider [phone] REASON FOR VISIT lab results Medications Medication SIG (Take, Route, Frequency, Duration) Notes Start Date End Date Status Liothyronine Sodium 5 MCG TAKE 1 TABLETS BY MOUTH EVERY DAY FOR 30 DAYS for 90 days Active Encounters Encounter Location Date Provider Diagnosis [facility] [address] [place] [address] 12/05/2024 Abilio Angeles Elevated liver enzym es R74.8 and Hypothyroid E03.9 Assessments Encounter Date Diagnosis (ICD Code) Assessment Notes Treatment Notes Treatment Clinical Notes Section Notes 12/05/2024 Elevated liver enzymes (ICD-10 - R74.8) 12/05/2024 Hypothyroid (ICD-10 - E03.9) Plan Of Treatment Medication Medication Name Sig Start Date Stop Date Notes Liothyronine Sodium 5 MCG TAKE 1 TABLETS BY MOUTH EVERY DAY FOR 30 DAYS for 90 days Pending Test Test Name Order Date ACUTE HEPATITIS PANEL 12/05/2024 LIVER PROFILE 12/05/2024 THYROID PANEL (T4/TSH/FREE T3) Progress Notes * Terry GONZALES EDOB:1960 (64 yo M)Acc No.[id number]:12/05/2024 Patient: Luisito Terry ALEXANDRA :1960 A ge:64 Y S ex:Male Address:[address] [place] [id number] * Refills Refill Liothyronine Sodium Tablet, 5 MCG, TAKE 1 TABLETS BY MOUTH EVERY DAY FOR 30 DAYS, 90 days, Refills=0 Subjective: * Chief Complaints: * L ab results * Medical History: * Surgical History: * Hospitalization/Major Diagno stic Procedure: * Medications: Objective: * Vitals: * Physical Examination: Assessment: * Assessment: 1. E levated liver enzymes - R74.8 (Primary) 2 . H ypothyroid - E03.9 ? Plan: * Treatment: 2. H ypothyroid L AB: THYROID PANEL (T4/TSH/FREE T3) 3. O thers Refill Liothyronine Sodium Tablet, 5 MCG, TAKE 1 TABLETS BY MOUTH EVERY DAY FOR 30 DAYS, 90 days, Refills 0. * Procedure Codes: * true * Date: Generated for Temitope stark/Singh/Yuly on: 0 12/13/2024 08:29 AM EDT
--- NOTE | 2024-12-13 08:00 | NM_ITS ---
Patient Name: PETER GONZALES MR#: [id number] : 1960 Exam Date: 12/13/2024 Ordering Doctor: DR JONATHAN MCKEON . RADIOLOGY REPORT PROCEDURE: NM KAROLYN PERF SPECT REST STR COMPARISON: None. INDICATIONS: HYPERTENSION, DYSPNEA TECHNIQUE: Exam Description: Stress/Rest one day protocol gated SPECT Rest Imagin.4 mCi Tc-99m Cardiolite IV on 12/13/2024 Stress Imaging 30.0 mCi Tc-99m Cardiolite IV on 12/13/2024 Exercise Protocol: 0.4 mg Lexiscan given IV Heart Rate (bpm): Rest: 50 Max: 77 PMHR: 49 Blood Pressure: Rest: 180/100 Max: 186/110 Symptoms: Rest and peak stress ECG findings were pending and the EKG portion of the study was pending per attending physician [facility] . For more details please see separate cardiac stress test report. FINDINGS: QUALITY OF STUDY: Good PERFUSION DEFECT: None LOCATION: SIZE: SEVERITY: TYPE: WALL MOTION: Normal LV SIZE: EDV 82 mL. TID / TCD: 0.9 LVEF: Calculated EF 54%. SUMMARY: Myocardial perfusion imaging study CONCLUSION: Normal myocardial perfusion stress test without evidence of ischemia or infarction Normal left ventricular systolic function, ejection fraction 54% No transient ischemic dilatation, TID 0.9 EKG portion of stress test is reported separately Dictated by: Maritza Hsu MD on 12/14/2024 at 14:00 Approved by: Maritza Hsu MD on 12/14/2024 at 14:03
--- OUTSIDE RECORDS SUMMARY | 2024-12-13 08:29 | XMS_ITS | Patient Health Record ---
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 Name Role Phone Abilio Angeles Primary Care Provider Allergies No Known Allergies Results Component Value Reference Range Notes CBC AUTO DIFF Reviewed date:12/05/2024 04:32:28 PM Interpretation: Performing Lab: Notes/Report: [facility] , White Blood Count 7.6 4.0-11.0 10 3/uL Red Blood Count 4.62 4.70-6.10 10 6/uL Hemoglobin 14.6 14.0-18.0 g/dL Hematocrit 42.3 42.0-54.0 % Mean Corpuscular Volume 91.6 80.0-94.0 fL Mean Corpuscular Hemoglobin 31.6 25.9-34.0 pg Mean Corpuscular HGB Conc 34.5 29.9-35.2 g/dL Red Cell Distribution Width 12.6 11.0-15.0 % Platelet Count 188 150-450 10 3/uL Mean Platelet Volume 11.0 9.5-13.5 fL Neutrophils Percent Auto 58.3 43.0-75.0 % Lymphocytes Percent Auto 25.9 20.5-60.0 % Monocytes Percent Auto 10.1 1.7-12.0 % Eosinophils Percent Auto 5.3 0.9-7.0 % Basophils Percent Auto 0.3 0.2-2.0 % Immature Granulocytes Pct Auto 0.1 0.0-0.5 % Neutrophils Absolute Auto 4.4 1.4-6.5 10 3/uL Lymphocytes Absolute Auto 2.0 1.2-3.8 10 3/uL Monocytes Absolute Auto 0.8 0.3-0.8 10 3/uL Eosinophils Absolute Auto 0.4 0.0-0.7 10 3/uL Basophils Absolute Auto 0.0 0.0-0.1 10 3/uL Immature Granulocytes Abs Auto 0.01 0.00-0.03 10 3/uL Performing Lab: see note ML - [facility] FREE T3 Reviewed date:12/05/2024 04:32:28 PM Interpretation: Performing Lab: Notes/Report: [facility] , Free T3 4.23 2.18-3.98 pg/mL Performing Lab: see note ML - [facility] GLYCOHEMOGLOBIN A1C Reviewed date:12/05/2024 04:32:28 PM Interpretation: Performing Lab: Notes/Report: [facility] , Glycohemoglobin A1C 5.8 4.5-6.2 % ADA RECOMMENDED LIMIT 4.0 - 6.0 ADA THERAPEUTIC TARGET < 7.0 ACTION SUGGESTED > 7.0 Estimated Average Glucose 120 Performing Lab: see note ML - [facility] LIPID PROFILE Reviewed date:12/05/2024 04:32:28 PM Interpretation: Performing Lab: Notes/Report: [facility] , Triglycerides 69 <=150 mg/dL Cholesterol 128 <=200 mg/dL HDL Cholesterol 42 40-60 mg/dL > or =60 mg/dl - LOW CARDIOVASCULAR RISK <40 mg/dl - HIGH CARDIOVASCULAR RISK LDL Cholesterol Calculated 72.2 <100 mg/dl OPTIMAL 100-129 mg/dl NEAR OR ABOVE OPTIMAL 130-159 mg/dl BORDERLINE HIGH 160-189 mg/dl HIGH >190 mg/dl VERY HIGH VLDL CHOLESTEROL 13.8 Chol HDL Ratio 3.0 3.3 - 4.4 LOW RISK 4.4 - 7.1 AVERAGE RISK 7.1 - 11.0 MODERATE RISK >11.0 HIGH RISK Performing Lab: see note ML - [facility] LB T4 Reviewed date:12/05/2024 04:32:29 PM Interpretation: Performing Lab: Notes/Report: [facility] , T4 Thyroxine 4.00 4.50-12.10 ug/dL Performing Lab: see note ML - [facility] LB TSH Reviewed date:12/05/2024 04:32:29 PM Interpretation: Performing Lab: Notes/Report: [facility] , Thyroid Stimulating Hormone 3.589 0.358-3.740 u IU/mL Performing Lab: see note ML - [facility] LB Troponin I High Sensitivity Reviewed date:12/05/2024 04:32:29 PM Interpretation: Performing Lab: Notes/Report: [facility] , Troponin I High Sensitivity 14.3 4.0-76.1 pg/m L CUT-OFF POINTS HAVE BEEN ESTABLISHED BASED ON THE FOURTH UNIVERSAL DEFINITION OF MYOCARDIAL INFARCTION. THE UPPER REFERENCE LIMIT (URL) OF TROPONIN, DEFINED THE 99TH PERCENTILE OF cTnI DISTRIBUTION IN A REFERENCE POPULATION, HAS BEEN CONFIRMED THE DECISION THRESHOLD FOR PR DIAGNOSIS. 99TH PERCENTILE = 76.2 PG/ML NOTE: HIGH-SENSITIVITY TROPONIN ASSAY IS NOT INTENDED TO BE USED IN ISOLATION BUT SHOULD BE INTERPRETED IN CONJUNCTION WITH OTHER DIAGNOSTIC AND CLINICAL INFORMATION. Performing Lab: see note ML - [facility] BNP Reviewed date:12/05/2024 04:32:29 PM Interpretation: Performing Lab: Notes/Report: [facility] , NT Pro B Type Natriuretic Pept 675.0 <=900.0 pg/mL Performing Lab: see note ML - [facility] LB PSA SCREENING Reviewed date:12/05/2024 04:32:28 PM Interpretation: Performing Lab: Notes/Report: [facility] , Prostate Specific Antigen Scrn 0.42 <=4.00 ng/mL Performing Lab: see note - [facility] LB PROF 14(COMP METB) Reviewed date:12/05/2024 04:32:28 PM Interpretation: Performing Lab: Notes/Report: [facility] , Sodium 144 136-145 mmol/L Potassium 4.2 3.5-5.1 mmol/L Chloride 106 98-107 mmol/L Carbon Dioxide 30.9 21.0-32.0 mmol/L Anion Gap 11.3 Glucose 105 74-106 mg/dL Blood Urea Nitrogen 16.0 7.0-18.0 mg/dL Creatinine 1.32 0.70-1.30 mg/dL Estimated GFR ( Brigette >60 >=60 mL/min/1.73m 2 Estimated GFR (Non- Sugar 54 >=60 mL/min/1.73m 2 BUN Creatinine Ratio 12.1 Calcium 9.3 8.5-10.1 mg/dL Bilirubin Total 0.5 0.2-1.0 mg/dL Aspartate Amino Transferase 60 15-37 U/L Alanine Aminotransferase 122 16-63 U/L Alkaline Phosphatase 107 46-116 U/L Total Protein 7.3 6.4-8.2 g/dL Albumin Level 3.6 3.4-5.0 g/dL Globulin 3.7 Albumin Globulin Ratio 1.0 Performing Lab: see note ML - [facility] LB INSULIN Reviewed date:12/06/2024 09:27:50 PM Interpretation: Performing Lab: Notes/Report: [facility] , Insulin 12.7 2.6-24.9 uIU/mL Performed at: - [facility] [address] [id number] Senior Hris Analyst: Eric Jimenez PhD, Phone: [phone] Performing Lab: see note LC - [facility] LB Reason For Referral No Information Medications Medication SIG (Take, Route, Frequency, Duration) Notes Start Date End Date Status cloNIDine HCl 0.1 MG 1 capsule Orally TI D for 30 days Active Lyrica 100 MG 1 capsule Orally BID for 30 days 05/26/2023 Active Meloxicam 15 MG TAKE 1 TABLET BY WILFREDO TH EVERY DAY for 30 Active Diclofenac Sodium 75 MG TAKE 1 TABLET BY MOUTH TWICE A DAY NEEDED for 90 Active Liothyronine Sodium 5 MCG TAKE 1 TABLETS BY MOUTH EVERY DAY FOR 30 DAYS for 90 days Active Olmesartan Medoxomil 40 MG TAKE 1 TABLET BY MOUTH EVERY DAY for 90 Active tiZANidine HCl 4 MG 2 tablets Orally at bedtime Active Metoprolol Succinate ER 50 MG TAKE 3 TABLETS BY MOUTH ONCE DAILY for 90 Active Social History Tobacco Use: Social History Observation Description Date Details (start date - stop date) Current Smoker 07/05/1975 - NA Tobacco Use/Smoking Question Answer Notes Patient is a current smoker When did you start smoking? 07/05/1975 How often do you smoke cigarettes? every day Alcohol Screen (Audit-C) Question Answer Notes Did you have a drink containing alcohol in the p ast year? No Points 0 Interpretation Negative Living Will Question Answer Notes Living Will No, patient does not have a living will and no information was provided Problems Problem Type SNOMED Code ICD Code Onset Dates Problem Status W/U Status Risk Notes Problem 80393795 Essential (primary) hypertension (I10) Active confirmed Problem 45967096 Anxiety disorder , unspecified (F41.9) Active confirmed Problem 51467121 Dermatitis, unspecified (L30.9) Active confirmed Problem 28957534 Pain in unspecified joint (M25.50) Active confirmed Problem 382498805 Spondylosis without myelopathy or radiculopathy, cervical region (M47.812) Active confirmed Problem 0183890 Spondylosis without myelopathy or radiculopathy, 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) Active confirmed Problem 803074823 Spondylosis without myelopathy or radiculopathy, lumbar region (M47.816) Active confirmed Problem 109034874 Other intervertebral disc displacement, lumbar region (M51.26) Active confirmed Problem 89326152 Other intervertebral disc degeneration, 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 confirmed Problem Hypertension (19239990) Hypertension (I10) Active confirmed Problem Hypothyroid (17056175) Hypothyroid (E03.9) Active confirmed Problem 154871638 Spinal stenosis, lumbar region without neurogenic claudication (M48.061) Active confirmed Problem Disorder of sacrum (25539168) Low back derangement syndrome (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) Active confirmed Vital Signs Blood pressure diastolic 86 mm Hg 12/04/2024 Height 67 in 12/04/2024 Blood pressure systolic 144 mm Hg 12/04/2024 Weight 162.6 lbs 12/04/2024 BMI 25.46 kg/m2 12/04/2024 Encounters Encounter Location Date Provider Diagnosis [address] [address] 12/05/2024 Abilio Hoy Elevated liver enzym es R74.8 and Hypothyroid E03.[address] [address] 01/20/2024 Abilio Hoy Hypertension I10 [address] [address] 12/04/2024 Abilio Hoy Essential (primary) hypertension I10 and Dyspnea R06.00 Assessments Encounter Date Diagnosis (ICD Code) Assessment Notes Treatment Notes Treatment Clinical Notes Section Notes 01/20/2024 Hypertension (ICD-10 - I10) morning meds -one of each bp and in evening 1 clonidine and 2 metoprolol 12/04/2024 Essential (primary) hypertension (ICD-10 - I10) 12/04/2024 Dyspnea (ICD-10 - R06.00) 12/05/2024 Elevated liver enzymes (ICD-10 - R74.8) 12/05/2024 Hypothyroid (ICD-10 - E03.9) Plan Of Treatment Pending Test Test Name Order Date CMP (COMPLETE METABOLIC PANEL) 4 HEMOGLOBIN A1C (GLYCO) 08/16/2023 HEMOGLOBIN A1C (GLYCO) 12/04/2024 INSULIN, TOTAL 08/16/2023 INSULIN, TOTAL 12/04/2024 LIPID PANEL (CHOL/TRIG/HDL/LDL) 12/05/19 25 LIPID PANEL (CHOL/TRIG/HDL/LDL) 08/16/19 24 CBC WITH DIFF 08/16/2023 PSA, PROSTATE-SPECIFIC ANTIGEN 4 URIC ACID 08/16/2023 XR Pelvis (1-2 views) * 02/25/2023 XR Lumbar Spine Flex/Ext 02/25/2023 MRI Lumbar Spine w/o contrast 01/28/2023 ACUTE HEPATITIS PANEL 12/05/2024 Treadmill Stress Test with Nuclear Imagi ng 12/04/2024 High Sensitivity Troponin 12/04/2024 STOOL OCCULT BLOOD 12/04/2024 STOOL OCCULT BLOOD 08/16/2023 US Renal Arterial Duplex 01/25/2023 LIVER PROFILE 12/05/2024 MRI LSPINE WO CON 01/07/2023 THYROID PANEL (T4/TSH/FREE T3) 5 THYROID PANEL (T4/TSH/FREE T3) 5 THYROID PANEL (T4/TSH/FREE T3) 4 PSA, SCREENING 12/04/2024 CMP (COMP MET DOWD) w/eGFR CKD-EPI 2024 CBC WITH DIFF 12/04/2024 Insurance Providers Payer Name Payer Address Payer Phone Subscriber Number Group Number Insured Name Patient Relationship to Insured Coverage Start Date Coverage End Date [employer] [address] [place] [address] [id number] Terry Myers Self - patient is the insured MEDICARE [place] [address] [id number] Terry Myers Self - patient is the insured Medications Administered Medication Instructions Date of Administration Dosage Notes Kenalog-40 12/25/2022 120 mg 120 Ketorolac Tromethamine 12/25/2022 60 mg 60 Orphenadrine Citrate 12/25/2022 60 mg 60 Medical (General) History Medical History History ICD Code Eczema L30.9 Tinea corporis B35.4 Lateral epicondylitis M77.10 Arthralgia M25.50 Anxiety F41.9 Hypertension I10 Hepatitis C B19.20 Surgical History Surgery Date(Month/Year)
[2024-12-13] MEDS: REGADENOSON 0.4 MG/5 ML SYRINGE IV (09:46)
--- NOTE | 2024-12-13 09:47 | PC.NURSE ---
Nursing Note Cardiac Stress Test Reviewed: Medication, allergies and patient history reviewed. Stress Test: [x ] Patient tolerated stress test well. [x ] Patient unable to tolerate walking on treadmill. Switched to Lexiscan stress test. [x ] No chest pain noted per patient [ ] Chest pain that resolved prior to leaving stress lab. [x ] No dyspnea noted. [ ] Dyspnea that resolved prior to leaving stress lab. [x ] Patient left stress lab asymptomatic and hemodynamically stable. [ ] Patient taken to the Emergency Room due to non-resolving symptoms following stress test. [ ] Patient achieved target heart rate. [ ] Patient unable to achieve target heart rate. [ ] Aminophylline administered as reversal agent to Lexiscan (Regadenoson). [ ] Nitro administered. Nursing Comments:Pt was scheduled for a TM stress test but was switched to a Lexiscan. Pt had a BP of 218/110 prior to the test and brought medications to take so he was instructed by this RN to take them so that we could switch pt to Lexiscan to have the test done. Pt's BP was 180/100 prior to the Lexiscan test which is in the limits to do the test. Pt also stated he did not think he could do the TM as he gets out of breath walking to his mailbox which he states is not very far. Pt tolerated Lexiscan test well and ambulated to cafeteria for breakfast prior to second set of images.
--- NOTE | 2024-12-13 11:15 | P.STRESS_ITS ---
Stress Test Stress Test Allergies Allergy/AdvReac Type Severity Reaction Status Date / Time No Known Drug Allergies Allergy Verified 03/29/23 09:25 Requesting physician: Ab Angeles Procedure: This was a Lexiscan stress test with myocardial perfusion imaging performed at the [facility] on 12/13/2024. Intravenous line was secured. The patient was attached to electrocardiographic monitoring. Baseline vital signs and ECG were obtained. Lexiscan 0.4 mg was administered intravenously followed by administration of Cardiolite. The patient then went on to obtain myocardial perfusion imaging. Resting heart rate was 50 bpm and peak heart rate was 77 bpm. Resting blood pressure was 180/100 and peak blood pressure was 180/100. General Information: Reason for Stress Test: Shortness of breath. Cardiac History and Risk Factors: Hypertension. Resting 12 - Lead Electrocardiogram: Sinus bradycardia at 50 bpm with no ischemic ST changes. Stress Test: Protocol: Lexiscan pharmacologic stress test. Patient cannot perform treadmill exercise. Exercise Capacity: Not assessed. Blood Pressure Response: Resting hypertension. Rhythm: Sinus with no arrhythmia. ST - Response: No ischemic ST changes. Patient Response: Shortness of breath after Lexiscan administration that resolved within 2 minutes. Interpretation: 1. Negative stress test for ischemic ST changes following infusion of Lexiscan. 2. Resting uncontrolled hypertension. 3. Myocardial perfusion images will be reported separately.
== END 2024-12-13 08:26 | disposition home or self-care (01) ==
LOC: NM 08:26
PROVIDERS: PCP Family Medicine; Visit Provider Family Medicine
DX: R07.9 Chest pain, unspecified (principal)
CPT/HCPCS: 78452; 93017; A9500; J2785